=== PATIENT | female | born 1960 | race Caucasian/White ===

== ENCOUNTER 2022-12-14 10:08 | Inpatient (IN) ==
[2022-12-14] MEDS ORDERED: niCARdipine HCL INJ 2.5 MG/ML 10 ML AMP ONE ×2 (10:12→10:13)
[2022-12-14] MEDS ORDERED: MIDAZOLAM HCL 1 MG/ML 2ML VIAL ONE (10:12)
[2022-12-14] MEDS ORDERED: NITROGLYCERIN/D5W 100MCG/ML 20ML SYR ONE (10:12)
[2022-12-14] MEDS ORDERED: HEPARIN (PORCINE) 1000 UNIT/ML 10 ML (CATH LAB USE ONLY) ONE (10:12)
[2022-12-14] MEDS ORDERED: fentaNYL citrate PF 100 MCG/2 ML VIAL ONE ×2 (10:12→10:21)
[2022-12-14] MEDS ORDERED: SODIUM CHLORIDE 0.9% 1000ML 1,000 ML IV ONE (10:15)
[2022-12-14 10:26] LABS: Basophils % (auto) 1.1 %; Eosinophils # (auto) 0.09 K/uL (0-0.50); Hematocrit (blood only) 41.8 % (37.0-47.0); Hemoglobin 13.9 g/dl (12.0-16.0); Immature Granulocytes # (auto) 0.02 K/uL (0.01-0.20); Immature Granulocytes % (auto) 0.2 %; Lymphocytes # (auto) 3.72 K/uL (1.2-3.4); Lymphocytes % (auto) 42.1 %; Mean Corpuscular Hemoglobin 30.4 pg (25.0-34.0); Mean Corpuscular Hgb Conc 33.3 g/dL (32.0-36.0); Mean Corpuscular Volume 91.5 fL (80.0-100.0); Mean Platelet Volume 9.2 fL (9.4-12.4); Monocytes # (auto) 0.69 K/uL (0.11-0.59); Monocytes % (auto) 7.8 %; Neutrophils # (auto) 4.22 K/uL (1.40-6.50); Neutrophils % (auto) 47.8 %; Platelet Count 318 K/uL (130-400); RDW Coefficient of Variation 13.3 % (11.5-14.5); RDW Standard Deviation 45.5 fL (36.4-46.3); Red Blood Count 4.57 M/uL (4.20-5.40); White Blood Count 8.84 K/ul (4.8-10.8)
--- NOTE | 2022-12-14 10:28 | Emergency Department Note ---
"Impression & Plan Acute ST elevation myocardial infarction (STEMI) of inferior wall ED Provider Note Name: JOHNIE CORREA Age: 62 Sex: F Arrives Via: Ambulance Informant: Patient, EMS, family ED Provider: Josue Nelson MD Chief Complaint: Chest pain Impression: As Per impressions above Medical Decision Makin-year-old female with sudden onset left-sided chest pain radiating to left shoulder left neck and back this morning. Rapidly worsening and called 911. On arrival EMS noted patient to be having an inferior ST elevation NC with complete heart block, hypertension. She was given IV fluids, p.o. aspirin, IV epi and IV fentanyl prior to arrival with improvement in symptoms. Patient on arrival is unwell appearing with a large STEMI. In the setting of hypotension and the pain rating to her back emergent chest x-ray was obtained which does not show any widened mediastinum. She has good pulses all 4 extremities. Discussed with cath team and irrigation equipment mechanic who feel that this is more likely cardiac and to be taken emergently to [facility] rather than getting CT angio chest to rule out dissection. She was given some further IV fentanyl while here along with a liter of fluid his blood pressures are a bit soft. She is breathing comfortably and sats are remaining stable. Patient taken emergently to [facility] for further management. Prior Medical Record and Triage/Nursing Notes reviewed by Me External chart reviewed by me Differentials:ACS, pneumothorax, dissection, PE, pneumonia, musculoskeletal, intra-abdominal amongst other pathologies considered Vital Signs: reviewed and remarkable for mild hypotension Interventions: Normal saline bolus 1 L IV, fentanyl 50 mcg IV Labs:Reviewed and remarkable for no significant abnormalities on initial laboratory testing Imagin view chest x-ray as per my interpretation there is no widened m ediastinum, pneumothorax, infiltrate or other concerning finding at this time other than some mild congestion bilateral lower lungs EKG:As per my interpretation. Chest pain. ST elevation NC with complete heart block 49 bpm as she is in a junctional rhythm there are anterior ST depressions. QTc 442 when compared to EKG of December 15, 2018 findings are new. Cardiac/Tele Monitoring: Cardiac Monitoring: An Order was placed for continuous cardiac monitoring. The monitor shows a rate of 50 with a bradycardic rhythm. Consults:Dr Sharp Lead Inspector Plan: Disposition:Taken emergently to director of labor and delivery Condition: Critical History of Present Illness:63-year-old female arrives for evaluation of sudden onset chest pain. Patient notes this morning she was getting ready for garage sale when she developed sudden onset left-sided chest pain rating to her left shoulder and left neck. Pain is now primarily in her left back. It is sharp and stabbing in nature. Associated with some mild shortness of breath. She feels very weak and tired. Denies previous cardiac issues. Denies any falls, trauma, injuries. She is a smoker and has a history of COPD. States she was feeling fine up until this morning. Denies any abdominal pain, leg pain, arm pain, neurologic deficits or other concerning signs or symptoms. Arrives via EMS received aspirin 324 mg p.o., epinephrine 0.5 mg IV and fentanyl 50 mcg IV prior to arrival. Patient was noted to have an inferior STEMI as well as complete heart block when EMS called in for medical command. Past History:Asthma, anxiety, COPD Home Medications:See Below Allergies:Sulfa, gabapentin Vitals:Blood Pressure: 107/60, Pulse 50, RR 12, T 36.6C, O2 98% on RA Physical Exam: GENERAL: Patient is ill appearing and in moderate distress. EYES: No scleral icterus, unremarkable pupils. ENT: Mucous membranes moist, no nasal congestion. RESPIRATORY: No dyspnea. Clear to auscultation and equal bilaterally. No wheeze, no rhonchi. CARDIOVASCULAR: Bradycardic.No murmurs, rubs, gallops appreciated. GASTROINTESTINAL: Abdomen soft, non-tender, no peritonitis. BACK: No midline tenderness, no CVA tenderness EXTREMITIES: Normal motion all extremities, no cyanosis, no edema. NEUROLOGIC: Alert and oriented though mildly somnolent, no focal neurologic deficit. No movement of right eye. SKIN: No rash, no jaundice, no diaphoresis. PSYCH: Appropriate GCS: 15 ED Course: Times/Reassessments: I met patient at bedside with EMS on her arrival. Patient managed exclusively until cath team arrived and after discussion took her to the [facility]. Patient with stable vitals and feeling improved at time of transfer to [facility]. Critical Care: I have personally spent 35 minutes of critical care time in the direct managem ent of this patient. Acute Inferior Stemi transferred to director of labor and delivery. This was a life/limb threatening event. This 35 minutes is in excess of all separately billable procedures. Josue Nelson MD Past Med/Surg History Medical History (Updated 12/14/22 @ 13:44 by Josue Nelson MD) Anxiety Asthma Epigastric pain Urticaria Surgical History No pertinent past surgical history Family History Other Factor V Leiden Social History Smoking Status: Current every day smoker Tobacco Type: Cigarettes Tobacco Cessation Education Requested by Patient: No Hx Substance Use: No Preferred Language: Djiboutian Communication Ability: Effective Surgical Corsetier Required: No Beliefs That Will Affect Care: None marital status: Single Current Living Situation: Alone current occupational status: employed Feels Safe at Home: Yes Safety Concerns: Feels Safe At This Time Allergies Allergies Allergy/AdvReac Type Severity Reaction Status Date / Time Sulfa (Sulfonamide Allergy Mild BURN Unverified 04/18/20 23:17 Antibiotics) gabapentin Allergy Unknown RASH/HIVES Unverified 04/18/20 23:17 garlic Allergy Unknown GI ISSUES Unverified 04/18/20 23:17 Home Meds Home Medications Medication Instructions Recorded Confirmed albuterol sulfate 90 mcg/actuation 2 puff inhalation BID PRN 12/15/18 12/14/22 aerosol inhaler (ProAir HFA) wheezing/sob aspirin 81 mg tablet,delayed 81 mg PO DAILY 12/15/18 12/14/22 release hydrocodone 10 mg-acetaminophen 1 tab PO Q6H PRN Pain 12/15/18 12/14/22 325 mg tablet (Glendo) lorazepam 0.5 mg tablet (Ativan) 0.5 mg PO Q6 PRN Anxiety 12/15/18 12/14/22 tobramycin 0.3 % eye drops 1 drp ophthalmic (eye) DAILY PRN 12/15/18 12/14/22 eye infection bupropion HCl 150 mg tablet,12 hr 300 mg PO DAILY 04/18/20 12/14/22 sustained-release cyclobenzaprine 10 mg tablet 10 mg PO HS PRN Muscle Spasm 12/14/22 12/14/22 diclofenac sodium 75 mg 75 mg PO BID 05/07/23 05/07/23 tablet,delayed release Results & Data (ED) Vital Signs Vital Signs - 24 hr 12/14/22 10:13 12/14/22 10:17 12/14/22 10:16 Temperature 36.5 C Temperature Source Oral Pulse Rate 50 L 51 L 50 L Pulse Rate from SpO2 Sensor 50 L Pulse Rhythm Regular Pulse Strength Normal Respiratory Rate 18 20 Respiratory Effort / Characteristics Non-Labored Respiratory Depth Normal Respiratory Pattern Regular Blood Pressure 140/113 H 140/113 H Blood Pressure Mean 122 122 Pulse Oximetry 100 100 Oxygen Delivery Method Nasal Cannula Nasal Cannula Oxygen Flow Rate 2 Sepsis Recent Fever Within 48 Hours No Sepsis New/Unexplained Change in Mental Status No Sepsis Action Taken by Nursing No Action Required 12/14/22 10:20 12/14/22 10:26 Temperature Temperature Source Pulse Rate 54 L 54 L Pulse Rate from SpO2 Sensor 54 L 54 L Pulse Rhythm Pulse Strength Respiratory Rate 17 18 Respiratory Effort / Characteristics Respiratory Depth Respiratory Pattern Blood Pressure 108/70 117/70 Blood Pressure Mean 82 85 Pulse Oximetry 99 100 Oxygen Delivery Method Nasal Cannula Nasal Cannula Oxygen Flow Rate 2 2 Sepsis Recent Fever Within 48 Hours Sepsis New/Unexplained Change in Mental Status Sepsis Action Taken by Nursing Laboratory Data 12/14/22 10:16 12/14/22 10:16 Lab Results 12/14/22 12/14/22 12/14/22 Range/Units 10:16 10:16 10:16 WBC 8.84 (4.8-10.8) K/ul RBC 4.57 (4.20-5.40) M/uL Hgb 13.9 (12.0-16.0) g/dl POC Hgb (12.0-16.0) g/dl Hct 41.8 (37.0-47.0) % POC Hct (37-47) % MCV 91.5 (80.0-100.0) fL MCH 30.4 (25.0-34.0) pg MCHC 33.3 (32.0-36.0) g/dL RDW Std Deviation 45.5 (36.4-46.3) fL RDW Coeff of Neeta 13.3 (11.5-14.5) % Plt Count 318 (130-400) K/uL MPV 9.2 L (9.4-12.4) fL Immature Gran % (Auto) 0.2 % Neut % (Auto) 47.8 % Lymph % (Auto) 42.1 % Screven % (Auto) 7.8 % Eos % (Auto) 1.0 % Baso % (Auto) 1.1 % Neut # (Auto) 4.22 (1.40-6.50) K/uL Lymph # (Auto) 3.72 H (1.2-3.4) K/uL Screven # (Auto) 0.69 H (0.11-0.59) K/uL Eos # (Auto) 0.09 (0-0.50) K/uL Baso # (Auto) 0.10 (0-0.2) K/uL Immature Gran # (Auto) 0.02 (0.01-0.20) K/uL PT 10.9 (9.0-12.0) Seconds INR 1.0 (0.9-1.1) APTT 23.4 (21.0-31.0) Seconds PTT Ratio 0.8 Activ Coag Time Kaolin (94-140) SECONDS POC Sodium (135-144) mmol/L Sodium 136 (136-145) mmol/L POC Potassium (3.3-5.0) mmol/L Potassium 4.3 (3.5-5.1) mmol/L POC Chloride (101-112) mmol/L Chloride 105 (98-107) mmol/L Carbon Dioxide 24 (21-32) mmol/L POC Total CO2 (24-31) mmol/L Anion Gap 7 (3-11) POC Anion Gap (16-25) mmol/L POC BUN (7-18) mg/dl BUN 25 H (6-23) mg/dl Creatinine 0.99 (0.6-1.2) mg/dl POC Creatinine (0.6-1.3) mg/dl Est Cr Clr Drug Dosing 66.4 ml/min Est GFR ( Amer) 70.8 ml/min Est GFR (Non-Af Amer) 61.1 ml/min BUN/Creatinine Ratio 25.3 H (10-20) Glucose 150 H (70-99(Fasting)) mg/dl POC Glucose (other) (70-99) mg/dl Calcium 8.4 L (8.6-10.3) mg/dl POC Ioniz Calcium Aggie (1.12-1.32) mmol/l Magnesium 1.9 (1.7-2.4) mg/dl Total Bilirubin 0.4 (0.2-1.0) mg/dl Direct Bilirubin 0.0 (0-0.2) mg/dl AST 12 L (13-39) U/L ALT 14 (7-52) U/L Alkaline Phosphatase 71 (34-104) U/L Troponin I High Sens 7.5 (0-14) pg/ml Total Protein 5.6 L (6.0-8.3) gm/dl Albumin 3.6 (3.4-5.0) gm/dl LDL Cholesterol Direct 178 mg/dl 12/14/22 12/14/22 12/14/22 Range/Units 10:19 11:04 11:29 WBC (4.8-10.8) K/ul RBC (4.20-5.40) M/uL Hgb (12.0-16.0) g/dl POC Hgb 15.0 (12.0-16.0) g/dl Hct (37.0-47.0) % POC Hct 44 (37-47) % MCV (80.0-100.0) fL MCH (25.0-34.0) pg MCHC (32.0-36.0) g/dL RDW Std Deviation (36.4-46.3) fL RDW Coeff of Neeta (11.5-14.5) % Plt Count (130-400) K/uL MPV (9.4-12.4) fL Immature Gran % (Auto) % Neut % (Auto) % Lymph % (Auto) % Screven % (Auto) % Eos % (Auto) % Baso % (Auto) % Neut # (Auto) (1.40-6.50) K/uL Lymph # (Auto) (1.2-3.4) K/uL Screven # (Auto) (0.11-0.59) K/uL Eos # (Auto) (0-0.50) K/uL Baso # (Auto) (0-0.2) K/uL Immature Gran # (Auto) (0.01-0.20) K/uL PT (9.0-12.0) Seconds INR (0.9-1.1) APTT (21.0-31.0) Seconds PTT Ratio Activ Coag Time Kaolin 269 H 323 H (94-140) SECONDS POC Sodium 137 (135-144) mmol/L Sodium (136-145) mmol/L POC Potassium 4.3 (3.3-5.0) mmol/L Potassium (3.5-5.1) mmol/L POC Chloride 105 (101-112) mmol/L Chloride (98-107) mmol/L Carbon Dioxide (21-32) mmol/L POC Total CO2 21 L (24-31) mmol/L Anion Gap (3-11) POC Anion Gap 17.0 (16-25) mmol/L POC BUN 23 H (7-18) mg/dl BUN (6-23) mg/dl Creatinine (0.6-1.2) mg/dl POC Creatinine 0.9 (0.6-1.3) mg/dl Est Cr Clr Drug Dosing ml/min Est GFR ( Amer) ml/min Est GFR (Non-Af Amer) ml/min BUN/Creatinine Ratio (10-20) Glucose (70-99(Fasting)) mg/dl POC Glucose (other) 147 H (70-99) mg/dl Calcium (8.6-10.3) mg/dl POC Ioniz Calcium Aggie 1.05 L (1.12-1.32) mmol/l Magnesium (1.7-2.4) mg/dl Total Bilirubin (0.2-1.0) mg/dl Direct Bilirubin (0-0.2) mg/dl AST (13-39) U/L ALT (7-52) U/L Alkaline Phosphatase (34-104) U/L Troponin I High Sens (0-14) pg/ml Total Protein (6.0-8.3) gm/dl Albumin (3.4-5.0) gm/dl LDL Cholesterol Direct mg/dl 12/14/22 Range/Units 12:18 WBC 12.51 H (4.8-10.8) K/ul RBC 4.60 (4.20-5.40) M/uL Hgb 14.1 (12.0-16.0) g/dl POC Hgb (12.0-16.0) g/dl Hct 44.0 (37.0-47.0) % POC Hct (37-47) % MCV 95.7 (80.0-100.0) fL MCH 30.7 (25.0-34.0) pg MCHC 32.0 (32.0-36.0) g/dL RDW Std Deviation 47.7 H (36.4-46.3) fL RDW Coeff of Neeta 13.4 (11.5-14.5) % Plt Count 303 (130-400) K/uL MPV 9.3 L (9.4-12.4) fL Immature Gran % (Auto) 0.4 % Neut % (Auto) 81.0 % Lymph % (Auto) 13.5 % Screven % (Auto) 4.2 % Eos % (Auto) 0.3 % Baso % (Auto) 0.6 % Neut # (Auto) 10.13 H (1.40-6.50) K/uL Lymph # (Auto) 1.69 (1.2-3.4) K/uL Screven # (Auto) 0.52 (0.11-0.59) K/uL Eos # (Auto) 0.04 (0-0.50) K/uL Baso # (Auto) 0.08 (0-0.2) K/uL Immature Gran # (Auto) 0.05 (0.01-0.20) K/uL PT (9.0-12.0) Seconds INR (0.9-1.1) APTT (21.0-31.0) Seconds PTT Ratio Activ Coag Time Kaolin (94-140) SECONDS POC Sodium (135-144) mmol/L Sodium (136-145) mmol/L POC Potassium (3.3-5.0) mmol/L Potassium (3.5-5.1) mmol/L POC Chloride (101-112) mmol/L Chloride (98-107) mmol/L Carbon Dioxide (21-32) mmol/L POC Total CO2 (24-31) mmol/L Anion Gap (3-11) POC Anion Gap (16-25) mmol/L POC BUN (7-18) mg/dl BUN (6-23) mg/dl Creatinine (0.6-1.2) mg/dl POC Creatinine (0.6-1.3) mg/dl Est Cr Clr Drug Dosing ml/min Est GFR ( Amer) ml/min Est GFR (Non-Af Amer) ml/min BUN/Creatinine Ratio (10-20) Glucose (70-99(Fasting)) mg/dl POC Glucose (other) (70-99) mg/dl Calcium (8.6-10.3) mg/dl POC Ioniz Calcium Aggie (1.12-1.32) mmol/l Magnesium (1.7-2.4) mg/dl Total Bilirubin (0.2-1.0) mg/dl Direct Bilirubin (0-0.2) mg/dl AST (13-39) U/L ALT (7-52) U/L Alkaline Phosphatase (34-104) U/L Troponin I High Sens (0-14) pg/ml Total Protein (6.0-8.3) gm/dl Albumin (3.4-5.0) gm/dl LDL Cholesterol Direct mg/dl Administered Medications Discontinued Medications Eptifibatide (Eptifibatide 2 Mg/Ml 10 Ml Vial ([facility] Use Only)) Confirm Administered Dose 20 mg IV .STK-MED ONE Stop: 12/14/22 11:04 Last Admin: 12/14/22 11:25 Dose: 16 ml Documented By: RITIKA Eptifibatide (Eptifibatide 0.75 Mg/Ml 75mg Vial ([facility] Use Only)) Confirm Administered Dose 75 mg IV .STK-MED ONE Stop: 12/14/22 11:05 Last Admin: 12/14/22 11:25 Dose: 75 mg Documented By: RITIKA Fentanyl Citrate (Fentanyl Citrate Pf 100 Mcg/2 Ml Vial) Confirm Administered D ose 100 mcg .ROUTE .STK-MED ONE Stop: 12/14/22 10:13 Last Increment: 12/14/22 11:23 Dose: 25 mcg Documented By: RITIKA Fentanyl Citrate (Fentanyl Citrate Pf 100 Mcg/2 Ml Vial) Confirm Administered Dose 100 mcg .ROUTE .STK-MED ONE Stop: 12/14/22 10:22 Last Admin: 12/14/22 10:42 Dose: Not Given Documented By: LUISA Fentanyl Citrate (Fentanyl Citrate Pf 100 Mcg/2 Ml Vial) 50 mcg IV NOW STA Stop: 12/14/22 10:40 Last Admin: 12/14/22 10:21 Dose: 50 mcg Documented By: LUISA Heparin Sodium (Porcine) (Heparin (Porcine) 1000 Unit/Ml 10 Ml ([facility] Use Only)) Confirm Administered Dose 10,000 units .ROUTE .STK-MED ONE Stop: 12/14/22 10:13 Last Admin: 12/14/22 11:23 Dose: 6,500 units Documented By: TLF Heparin Sodium/Sodium Chloride (Heparin In Nss Infusion 1000 Unit/500 Ml (2 U/Ml) Bag) Confirm Administered Dose 3,000 units IV .STK-MED ONE Stop: 12/14/22 10:13 Last Admin: 12/14/22 11:23 Dose: 3,000 units Documented By: TLF Sodium Chloride (Nss 1000ml) 1,000 mls @ 999 mls/hr IV .Q1H1M ONE Stop: 12/14/22 11:15 Last Admin: 12/14/22 10:14 Dose: 999 mls/hr Documented By: W[place] Midazolam HCl (Midazolam Hcl 1 Mg/Ml 2ml Vial) Confirm Administered Dose 2 mg .ROUTE .STK-MED ONE Stop: 12/14/22 10:13 Last Admin: 12/14/22 11:23 Dose: Not Given Documented By: TLF Nicardipine HCl (Nicardipine Hcl Inj 2.5 Mg/Ml 10 Ml Amp) Confirm Administered Dose 25 mg .ROUTE .STK-MED ONE Stop: 12/14/22 10:13 Last Admin: 12/14/22 11:23 Dose: 25 mg Documented By: TLF Nicardipine HCl (Nicardipine Hcl Inj 2.5 Mg/Ml 10 Ml Amp) Confirm Administered Dose 25 mg .ROUTE .STK-MED ONE Stop: 12/14/22 10:14 Last Admin: 12/14/22 11:24 Dose: 25 mg Documented By: TLF Nitroglycerin/Dextrose (Nitroglycerin/D5w 100mcg/Ml 20ml Syr) Confirm Administered Dose 2,000 mcg .ROUTE .STK-MED ONE Stop: 12/14/22 10:13 Last Admin: 12/14/22 11:23 Dose: 2,000 mcg Documented By: TLF Norepinephrine Bitartrate (Norepinephrine Bitartrate 1 Mg/Ml 4 Ml Vial ([facility] Use Only)) Confirm Administered Dose 4 mg IV .STK-MED ONE Stop: 12/14/22 10:51 Last Admin: 12/14/22 11:25 Dose: Not Given Documented By: TLF Ondansetron HCl (Ondansetron Inj 2 Mg/Ml 2 Ml Vial) Confirm Administered Dose 4 mg .ROUTE .STK-MED ONE Stop: 12/14/22 10:37 Last Admin: 12/14/22 11:24 Dose: 4 mg Documented By: TLF Ondansetron HCl (Ondansetron Inj 2 Mg/Ml 2 Ml Vial) Confirm Administered Dose 4 mg .ROUTE .STMikro Odeme | 3pay-MED ONE Stop: 12/14/22 10:46 Last Admin: 12/14/22 11:25 Dose: 4 mg Documented By: TLF Imaging Data Radiologist's Impression: Chest X-Ray 12/14/22 10:15 XR chest 1V portable CLINICAL HISTORY: Atypical chest pain. COMPARISON STUDY: Chest radiograph December 15, 2018. FINDINGS: Lung volumes are normal. Lungs are clear. There is no pneumothorax or pleural effusion. Cardiac size is normal. Mediastinal contours are normal. There is no evidence for pulmonary edema. IMPRESSION: No acute cardiopulmonary findings. ACT 112: Negative or not required by law. Electronically signed by: Gary Ureña M.D. 12/14/2022 10:30 AM Discharge Plan Visit Data Chief Complaint: Heart Alert Stated Complaint: HEART ALERT ED Provider: Josue Nelson Discharge Problem: Acute ST elevation myocardial infarction (STEMI) of inferior wall"
[2022-12-14 10:31] LABS: iSTAT Creatinine 0.9 mg/dl (0.6-1.3); iSTAT Ionized Calcium 1.05 mmol/l (1.12-1.32); iSTAT Potassium 4.3 mmol/L (3.3-5.0)
--- NOTE | 2022-12-14 10:32 | XRay Report ---
XR chest 1V portable CLINICAL HISTORY: Atypical chest pain. COMPARISON STUDY: Chest radiograph December 15, 2018. FINDINGS: Lung volumes are normal. Lungs are clear. There is no pneumothorax or pleural effusion. Car diac size is normal. Mediastinal contours are normal. There is no evidence for pulmonary edema. IMPRESSION: No acute cardiopulmonary findings. ACT 112: Negative or not required by law. Electronically signed by: Gary Ureña M.D. 12/14/2022 10:30 AM
[2022-12-14] MEDS ORDERED: ONDANSETRON INJ 2 MG/ML 2 ML VIAL ONE ×2 (10:36→10:45)
[2022-12-14 10:37] LABS: Partial Thromboplastin Ratio 0.8; Partial Thromboplastin Time 23.4 Seconds (21.0-31.0); Prothrombin Time 10.9 Seconds (9.0-12.0)
[2022-12-14] MEDS ORDERED: fentaNYL citrate PF 100 MCG/2 ML VIAL IV STA (10:39)
[2022-12-14] MEDS ORDERED: DOPamine 400MG / 250ML D5W (Cath Lab Use ONLY) IV ONE (10:39)
[2022-12-14 10:48] LABS: Albumin Level 3.6 gm/dl (3.4-5.0); BUN Creatinine Ratio 25.3 (10-20); Bilirubin,Total 0.4 mg/dl (0.2-1.0); Calcium 8.4 mg/dl (8.6-10.3); Creatinine Clr Calc Pharmacy 66.4 ml/min; Est GFR (African American) 70.8 ml/min; Est GFR (Non-African American) 61.1 ml/min; Magnesium 1.9 mg/dl (1.7-2.4); Potassium 4.3 mmol/L (3.5-5.1); Total Protein 5.6 gm/dl (6.0-8.3)
[2022-12-14] MEDS ORDERED: NOREPINEPHRINE BITARTRATE 1 MG/ML 4 ML VIAL (CATH LAB USE ONLY) IV ONE (10:50)
[2022-12-14 10:54] LABS: Troponin I High Sensitivity 7.5 pg/ml (0-14)
[2022-12-14] MEDS ORDERED: EPTIFIBATIDE 2 MG/ML 10 ML VIAL (CATH LAB USE ONLY) IV ONE (11:03)
[2022-12-14] MEDS ORDERED: EPTIFIBATIDE 0.75 MG/ML 75MG VIAL (CATH LAB USE ONLY) IV ONE (11:04)
[2022-12-14] MEDS ORDERED: TICAGRELOR 90 MG TAB ONE (11:29)
[2022-12-14] MEDS ORDERED: ONDANSETRON INJ 2 MG/ML 2 ML VIAL IV PRN (11:34)
[2022-12-14] MEDS ORDERED: STAT IV Infusion **Titration per Protocol STA (11:34)
[2022-12-14] MEDS ORDERED: ATROPINE SULFATE 0.1 MG/ML 10ML SYR IV PRN (11:34)
[2022-12-14] MEDS ORDERED: EPTIFIBATIDE BOLUS/DRIP IV STA (11:34)
--- NOTE | 2022-12-14 11:45 | Pre Anesthesia Assessment ---
Date of Service December 14, 2022 Pre Sedation Assessment Vital Signs Temp Pulse Resp BP Pulse Ox O2 Del Method O2 Flow Rate 12/14/22 10:26 54 L 18 117/70 100 Nasal Cannula 2 12/14/22 10:20 54 L 17 108/70 99 Nasal Cannula 2 12/14/22 10:16 50 L 20 140/113 H 100 Nasal Cannula 2 12/14/22 10:17 51 L 12/14/22 10:13 36.5 C 50 L 18 140/113 H 100 Nasal Cannula Cardiovascular RRR, no murmur, no edema (bradycardia) Respiratory normal respiratory effort, lungs clear to auscultation Pre-Sedation Airway Assessment Smoking Status: Current every day smoker mallampati III ASA 4 Notes The planned sedation has been discussed with the patient. Informed Consent was obtained. I have identified the patient, determined the appropriateness of sedation and have assessed the patient immediately prior to the procedure. All medicine(s) and interventions are by my order. [facility] [place] (Charges) Indication for Procedure Indication for procedure: STEMI bradycardia
--- NOTE | 2022-12-14 11:48 | Post Anesthesia Assessment ---
Date of Service December 14, 2022 Post Sedation Assessment Vital Signs Temp Pulse Resp BP Pulse Ox O2 Del Method O2 Flow Rate 12/14/22 10:26 54 L 18 117/70 100 Nasal Cannula 2 12/14/22 10:20 54 L 17 108/70 99 Nasal Cannula 2 12/14/22 10:16 50 L 20 140/113 H 100 Nasal Cannula 2 12/14/22 10:17 51 L 12/14/22 10:13 36.5 C 50 L 18 140/113 H 100 Nasal Cannula Recovery Score Activity: Moves 4 extremities Respiration: Deep Breath/Cough Circulation: +/-20% PreAnes Value Consciousness: Fully Awake Oxygen Saturation: > 92% On Room Air Discharge Sedation Level of Care: Fast Track Phase II Post Sedation Plan On clinical assessment, the patient appears to have tolerated the sedation without complications. Patient is recovering as anticipated. Patient will continue to be monitored by nursing and may be discharged when sedation discharge criteria are met per below protocol. Upon Completions of procedure up to 15 minutes continue every 5 minute vital signs and the P.A.R. score; then discharge to a Phase I or Fast Track to Phase II per the following guidelines: * Discharge Patient to appropriate Phase II area if PAR is 8 or greater or return to pre- procedure baseline. The post - procedure orders will be as directed. * If PAR score is less than 8 or not return to pre-procedure baseline then patient will follow Phase I monitoring till PAR is reached for Phase II. The Phase I may be done in procedure room or may call to secure a Phase I area. * If naloxone or flumazenil are used for reversal, hold in Phase I for continued monitoring from when last reversal dose was given for a minimum of 60 minutes or longer pending the nurse and/or physician discretion of patient condition before discharge to Phase II. Please call the Sedation Physician to re-evaluate and complete post-note for discharge to Phase II area. Do NOT discharge from procedure sedation or Phase 1 until post- sedation evaluation note is complete by procedure /sedation MD Sedation Discharge Instructions to be given to the patient at discharge to home. [facility] [place] Procedure Codes (Charges) Indication for Procedure Indication for procedure: STEMI bradycardia Sedation/Anesthesia Procedure 1: Sedation/Anesthesia: 05450 Mod Sedation by the same physician;Init15 Min Child Age 5 & Up (initial 15 min) Total Sedation Time (minutes): 44 Procedure 2: Sedation/Anesthesia: 42191 Mod Sedation by the same physician; Ea [id number] Minutes Total Sedation Time (minutes): 44
--- NOTE | 2022-12-14 12:03 | Cardiac Catheterization ---
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 Cardiac Status Clinical evaluation leading to the procedure CAD Presenation: STEMI (inferior) Anginal Classification: CCS IV Heart Failure: No Cardiogenic Shock within 24 Hours: Yes (borderline) Cardiac Arrest within 24 Hours: No Imaging Studies Past 6 Months: No Stress Studies Past 6 Months: No STEMI OR Non-STEMI Symptom Onset Date: 12/14/22 Symptom Onset Time: 09:00 Thrombolytics: No Coronary Anatomy Dominant: Right Left Main (% Stenosis): Normal LAD (% Stenosis): Ostial (30%) D1 (% Stenosis): Normal Circumflex (% Stenosis): Normal OM1 (% Stenosis): Normal OM2 (% Stenosis): Normal RCA (% Stenosis): Proximal (100%) Diagnostic Physicians Name: Dillon Sharp MD, PhD Closure Device Percutaneous Entry Location: Femoral Closure Device: Angio-Seal Recommendations: Medical Therapy and/or Counseling and PCI without planned CABG PCI Indication: PCI for STEMI - Unstable First Noted: First EKG Reason For Delay in PCI:: equipment failure Lesion Segment Name: RCA Culprit Artery: Yes Stenosis Prior to Rx (%): 100 Chronic Total Occlusion: No Pre-Procedure ELEAZAR Flow: 0 Previously Treated Lesion: No Lesion Complexity: Non-High/Non-C Lesion Length (mm): 12 Thrombus Present: Yes Bifurcation Lesion: No Guidewire Across Lesion: Yes Intraprocedure Events Significant Disection: No Perforation: No Cardiac Cath Procedure Full Procedure Date December 14, 2022 Pre-Procedure Diagnosis Pre-Procedure Diagnosis: STEMI and Arrhythmia AUC Score AUC Score: 09 Post-Procedure Diagnosis Post-Procedure Diagnosis: Severe CAD and Successful PCI Procedure(s) Performed Procedure(s) Performed: Coronary Angiography, Drug Eluting Stent and Ultrasound Guided Vascular Access Oil Distributor Dillon Sharp MD, PhD Estimated Blood Loss Estimated Blood Loss: 15 Medication(s) Medication(s): Dopamine, Fentanyl, Heparin, Integrilin, Lidocaine 1%, Nitroglycerin and Versed Summary of Findings Brief description: Patient was brought to the cardiac catheterization suite where she was shaved and prepped in a sterile fashion. Sedated using only fentanyl because of her low blood pressure. Soft tissues of the right groin were anesthetized using 10 mils of 1% Xylocaine. Using the ultrasound for guidance (image saved), the right femoral artery was accessed and a 6 Iranian femoral artery sheath was placed. All catheters were advanced and exchanged over a 0.035 J-tip wire. Left coronary angiography was performed in orthogonal views with a 5 Iranian JL 4 diagnostic catheter. Right coronary angiography was performed in orthogonal views with a 6 Iranian JR4 guide catheter. We next proceeded with PCI. During PCI, patient developed hypotension and worsening bradycardia. She was started on dopamine drip. This improved her blood pressure and her heart rate, however, she became very nauseated and we eventually stopped the dopamine. She was also on IV fluids wide open. She was given Zofran for the nausea and vomiting. Patient was provided 6500 units of IV heparin. The ACT was checked intermittently and additional heparin provided as needed. BMW universal guidewire was advanced through the guide catheter and positioned distally in the RCA. Lesion was predilated with a 2.5 x 12 mm trek balloon at 12 eduardo maximum. PCI with 2.5 x 18 mm drug-eluting stent. Postdilatation of the stent with a 2.5 x 12 mm noncompliant balloon. Guidewire and balloon were removed. Final angiographic evaluation was performed in orthogonal views. Limited right femoral artery angiography was performed to evaluate for closure. Findings were favorable, therefore, the femoral artery sheath was exchanged for a 6 Iranian Angio-Seal closure device. This was deployed in the recommended fashion. We obtained immediate hemostasis and the patient remained asymptomatic. She was then returned to the recovery area. This ended the case. Coronary angiography findings: [id number] bifurcating into LAD and circumflex. No angiographically evident disease. LAD- Large caliber and transapical. Very tortuous in the distal vessels. There is a large branching diagonal with tortuous branches. Proximal LAD up to 30% stenosis. The remainder of the LAD and its branches have no more than mild luminal irregularities. LCx-large caliber and nondominant. Travels in the AV groove giving a small OM1 and then a large branching OM 2. Distally the vessel tapers and then terminates. No angiographically evident disease in the circumflex or its branches. RCA: Large caliber and dominant. 100% occluded proximally. ELEAZAR 0 flow. Thrombus present. PCI of RCA: 0-10% residual stenosis post PCI. There is mild in-stent "cheese grater" type material and mild thrombus. ELEAZAR-3 flow post PCI No evidence of dissection or perforation post PCI The mid to distal RCA are evident post PCI and have mild disease. Vessel bifurcates into a large PDA and a large multi branching posterolateral without disease. Summary: 1. Acute inferior ST elevation IL likely also involving the right ventricle secondary to 100% thrombotic occlusion proximally. Remainder of the coronaries are without significant disease. 2. Successful PCI with implantation of a drug-eluting stent to the RCA. Adequate angiographic outcome. Residual thrombus and plaque will be managed by medication. 3. Dual antiplatelet therapy with aspirin 81 mg daily and Brilinta 90 mg p.o. twice daily 4. Guideline directed medical therapy for secondary prevention of coronary disease to include; high intensity statin therapy, beta-denae, plus or minus PATRICIA inhibitor/ARB as tolerated. Abstinence from tobacco. Hemodynamics Rest Ao:: 106/61 mm Hg Final Ao: 73/53 mm Hg LV: not performed Recommendations Recommendations: Medical Therapy and/or Counseling and PCI without planned CABG Radiation Exposure (mGy) 638 mGy, flourotime 7.4 min Contrast (mls) 120 Anesthesia start 10:44, end 11:28 50 mcg fentanyl Procedural Complication(s) None Disposition ICU I attest to the content of the Intraoperative Record and any orders documented therein. Any exceptions are noted below. Rebit Card Cath Procedure Codes Cardiac Catheterization Procedure 1: Cardiovascular Cath Procedures: 41118 Coronaries Therapeutic Services & Ancillary Procedure 1: Cardiovascular Tx and Anc Procedures: 14994 Ultrasonic Guidance Vascular Access Moderate Sedation Procedure 1: Sedation/Anesthesia: 63133 Mod Sedation by the same physician;Init15 Min Child Age 5 & Up (initial 15 min (total 44 min)) Procedure 2: Sedation/Anesthesia: 61185 Mod Sedation by the same physician; Ea [id number] Minutes (addition 29 min (total 44 min)) Stenting Procedure 1: Cardiovascular Stent Procedures: 78272 Perc transluminal revascularization of acute sub/total occl, aMI PG Care Time/CCT Total # of Minutes Spent Total Time Spent with Patient: Total time spent is greater than 50% in coordination of care (as documented) at patient's floor/unit and/or counseling patient:
[2022-12-14 12:55] LABS: Basophils # (auto) 0.08 K/uL (0-0.2); Basophils % (auto) 0.6 %; Eosinophils # (auto) 0.04 K/uL (0-0.50); Eosinophils % (auto) 0.3 %; Hemoglobin 14.1 g/dl (12.0-16.0); Immature Granulocytes # (auto) 0.05 K/uL (0.01-0.20); Immature Granulocytes % (auto) 0.4 %; Lymphocytes # (auto) 1.69 K/uL (1.2-3.4); Lymphocytes % (auto) 13.5 %; Mean Corpuscular Hemoglobin 30.7 pg (25.0-34.0); Mean Corpuscular Volume 95.7 fL (80.0-100.0); Mean Platelet Volume 9.3 fL (9.4-12.4); Monocytes # (auto) 0.52 K/uL (0.11-0.59); Monocytes % (auto) 4.2 %; Neutrophils # (auto) 10.13 K/uL (1.40-6.50); Platelet Count 303 K/uL (130-400); RDW Coefficient of Variation 13.4 % (11.5-14.5); RDW Standard Deviation 47.7 fL (36.4-46.3); White Blood Count 12.51 K/ul (4.8-10.8)
[2022-12-14] MEDS: NICOTINE 14 MG/24 HR PATCH TD SCH (13:00)
--- NOTE | 2022-12-14 14:01 | Cardiology Consultation ---
Date of Consultation December 14, 2022 Assessment & Plan (1) Acute ST elevation myocardial infarction (STEMI) of inferior wall: (2) Tobacco dependence due to cigarettes: (3) Heart block: (4) Familial hyperlipidemia: Plan Patient is a 62-year-old female without prior history of ischemic heart disease, possible transient atrial flutter in the past, chronic tobacco use and marked hyperlipidemia who this morning approximately 9 AM developed symptoms of burning heavy pain in both upper arms radiating to the shoulders and neck symptoms persisted and worsened. Patient notable hypotension on blood pressure check at home and EMS summoned EKG on initial evaluation revealed ST elevation inferior leads with heart block, junctional escape Patient taken emergently to the Health Service Worker and underwent coronary invention for occluded right coronary artery in its proximal segment. Symptoms resolved as did AV block Patient seen immediately post catheterization with resolve of symptoms of chest pain or discomfort Impression: 1. Acute inferior ST elevation myocardial infarction predominantly single- vessel disease with prompt presentation and treatment. Chest pain symptoms resolved Patient on antiplatelet therapy aspirin beta-denae and statin ordered Cardiac rehab consultation on discharge 2. Transient high degree AV block secondary to acute myocardial ischemia resolved on telemetry, serial EKGs to be ordered 3. Marked hyperlipidemia possible familial LDL greater than 200 on initial assessment 2020. High intensity statin to be ordered. May warrant familial screening History of Present Illness Reason for Consultation: ST elevation myocardial infarction Requesting Physician: Dr. Powell Attending Physician: Kenny Powell MD History of Present Illness Patient is a 62-year-old female Allergies Allergy/AdvReac Type Severity Reaction Status Date / Time Sulfa (Sulfonamide Allergy Mild BURN Unverified 04/18/20 23:17 Antibiotics) gabapentin Allergy Unknown RASH/HIVES Unverified 04/18/20 23:17 garlic Allergy Unknown GI ISSUES Unverified 04/18/20 23:17 Home Medications Medication Instructions Recorded Confirmed Type albuterol sulfate 90 mcg/actuation 2 puff inhalation BID PRN 12/15/18 12/14/22 History aerosol inhaler (ProAir HFA) wheezing/sob aspirin 81 mg tablet,delayed 81 mg PO DAILY 12/15/18 12/14/22 History release hydrocodone 10 mg-acetaminophen 1 tab PO Q6H PRN Pain 12/15/18 12/14/22 History 325 mg tablet (Newborn) lorazepam 0.5 mg tablet (Ativan) 0.5 mg PO Q6 PRN Anxiety 12/15/18 12/14/22 History tobramycin 0.3 % eye drops 1 drp ophthalmic (eye) DAILY PRN 12/15/18 12/14/22 History eye infection bupropion HCl 150 mg tablet,12 hr 300 mg PO DAILY 04/18/20 12/14/22 History sustained-release cyclobenzaprine 10 mg tablet 10 mg PO HS PRN Muscle Spasm 12/14/22 12/14/22 History diclofenac sodium 75 mg 75 mg PO BID 12/14/22 12/14/22 History tablet,delayed release Patient History Medical History (Updated 12/14/22 @ 14:15 by Bay Boswell MD) Anxiety Asthma Epigastric pain Urticaria Surgical History No pertinent past surgical history Family History Other Factor V Leiden Social History Smoking Status: Current every day smoker Tobacco Type: Cigarettes Tobacco Cessation Education Requested by Patient: No Hx Substance Use: No Preferred Language: Kiswahili Communication Ability: Effective Magnetic Locater Required: No Beliefs That Will Affect Care: None marital status: Single Current Living Situation: Alone current occupational status: employed Feels Safe at Home: Yes Safety Concerns: Feels Safe At This Time Review of Systems Review of Systems: All systems reviewed & are unremarkable except as noted in HPI & below Physical Exam Constitutional: + ill appearing; no acute distress Eyes: PERRL, conjunctivae normal, anicteric sclerae ENMT: external ear and nose normal, oropharynx normal Neck: trachea midline, no thyromegaly Respiratory: normal respiratory effort, lungs clear to auscultation Auscultation: + diminished lung sounds Cardiovascular: RRR, no murmur, no edema Vessels: femoral pulses present (Right femoral access site intact); no JVD Extremities: no edema Gastrointestinal (Abdomen): normal bowel sounds, soft, nontender, no hepatosplenomegaly Musculoskeletal: no cyanosis or clubbing, extremities motor strength 5/5 Results & Data Vital Signs (Past 12 Hours) Vital Signs Temp Pulse Pulse Resp BP BP Pulse Ox 12/14/22 13:30 71 21 97 12/14/22 13:30 101/71 12/14/22 13:15 73 21 93 12/14/22 13:00 78 19 12/14/22 12:45 80 16 96 12/14/22 12:30 81 15 95 12/14/22 12:30 91/57 L 12/14/22 12:15 81 17 97 12/14/22 12:01 86 21 93 12/14/22 12:01 92/56 L 12/14/22 12:00 87 21 12/14/22 11:51 89 13 12/14/22 11:50 93/53 L 12/14/22 13:22 36.6 C 87 22 93/53 L 98 12/14/22 10:26 54 L 18 117/70 100 12/14/22 10:20 54 L 17 108/70 99 12/14/22 10:16 50 L 20 140/113 H 100 12/14/22 10:17 51 L 12/14/22 10:13 36.5 C 50 L 18 140/113 H 100 O2 Del Method O2 Flow Rate 12/14/22 13:30 12/14/22 13:30 12/14/22 13:15 12/14/22 13:00 12/14/22 12:45 12/14/22 12:30 12/14/22 12:30 12/14/22 12:15 12/14/22 12:01 12/14/22 12:01 12/14/22 12:00 12/14/22 11:51 12/14/22 11:50 12/14/22 13:22 Room Air 12/14/22 10:26 Nasal Cannula 2 12/14/22 10:20 Nasal Cannula 2 12/14/22 10:16 Nasal Cannula 2 12/14/22 10:17 12/14/22 10:13 Nasal Cannula Laboratory Results Laboratory Results - last 24 hr 12/14/22 12/14/22 12/14/22 10:15 10:16 10:16 WBC 8.84 RBC 4.57 Hgb 13.9 POC Hgb Hct 41.8 POC Hct MCV 91.5 MCH 30.4 MCHC 33.3 RDW Std Deviation 45.5 RDW Coeff of Neeta 13.3 Plt Count 318 MPV 9.2 L Immature Gran % (Auto) 0.2 Neut % (Auto) 47.8 Lymph % (Auto) 42.1 [place] % (Auto) 7.8 Eos % (Auto) 1.0 Baso % (Auto) 1.1 Neut # (Auto) 4.22 Lymph # (Auto) 3.72 H [place] # (Auto) 0.69 H Eos # (Auto) 0.09 Baso # (Auto) 0.10 Immature Gran # (Auto) 0.02 PT 10.9 INR 1.0 APTT 23.4 PTT Ratio 0.8 Activ Coag Time Kaolin POC Sodium Sodium POC Potassium Potassium POC Chloride Chloride Carbon Dioxide POC Total CO2 Anion Gap POC Anion Gap POC BUN BUN Creatinine POC Creatinine Est Cr Clr Drug Dosing Est GFR ( Amer) Est GFR (Non-Af Amer) BUN/Creatinine Ratio Glucose POC Glucose (other) Estimat Average Glucose Pending Hemoglobin A1c Pending Calcium POC Ioniz Calcium Aggie Magnesium Total Bilirubin Direct Bilirubin AST ALT Alkaline Phosphatase Troponin I High Sens Total Protein Albumin LDL Cholesterol Direct Nasal Screen MRSA (PCR) 12/14/22 12/14/22 12/14/22 10:16 10:19 11:04 WBC RBC Hgb POC Hgb 15.0 Hct POC Hct 44 MCV MCH MCHC RDW Std Deviation RDW Coeff of Neeta Plt Count MPV Immature Gran % (Auto) Neut % (Auto) Lymph % (Auto) [place] % (Auto) Eos % (Auto) Baso % (Auto) Neut # (Auto) Lymph # (Auto) [place] # (Auto) Eos # (Auto) Baso # (Auto) Immature Gran # (Auto) PT INR APTT PTT Ratio Activ Coag Time Kaolin 269 H POC Sodium 137 Sodium 136 POC Potassium 4.3 Potassium 4.3 POC Chloride 105 Chloride 105 Carbon Dioxide 24 POC Total CO2 21 L Anion Gap 7 POC Anion Gap 17.0 POC BUN 23 H BUN 25 H Creatinine 0.99 POC Creatinine 0.9 Est Cr Clr Drug Dosing 66.4 Est GFR ( Amer) 70.8 Est GFR (Non-Af Amer) 61.1 BUN/Creatinine Ratio 25.3 H Glucose 150 H POC Glucose (other) 147 H Estimat Average Glucose Hemoglobin A1c Calcium 8.4 L POC Ioniz Calcium Aggie 1.05 L Magnesium 1.9 Total Bilirubin 0.4 Direct Bilirubin 0.0 AST 12 L ALT 14 Alkaline Phosphatase 71 Troponin I High Sens 7.5 Total Protein 5.6 L Albumin 3.6 LDL Cholesterol Direct 178 Nasal Screen MRSA (PCR) 12/14/22 12/14/22 12/14/22 11:29 12:18 Unknown WBC 12.51 H RBC 4.60 Hgb 14.1 POC Hgb Hct 44.0 POC Hct MCV 95.7 MCH 30.7 MCHC 32.0 RDW Std Deviation 47.7 H RDW Coeff of Neeta 13.4 Plt Count 303 MPV 9.3 L Immature Gran % (Auto) 0.4 Neut % (Auto) 81.0 Lymph % (Auto) 13.5 [place] % (Auto) 4.2 Eos % (Auto) 0.3 Baso % (Auto) 0.6 Neut # (Auto) 10.13 H Lymph # (Auto) 1.69 Kent # (Auto) 0.52 Eos # (Auto) 0.04 Baso # (Auto) 0.08 Immature Gran # (Auto) 0.05 PT INR APTT PTT Ratio Activ Coag Time Kaolin 323 H POC Sodium Sodium POC Potassium Potassium POC Chloride Chloride Carbon Dioxide POC Total CO2 Anion Gap POC Anion Gap POC BUN BUN Creatinine POC Creatinine Est Cr Clr Drug Dosing Est GFR ( Amer) Est GFR (Non-Af Amer) BUN/Creatinine Ratio Glucose POC Glucose (other) Estimat Average Glucose Hemoglobin A1c Calcium POC Ioniz Calcium Aggie Magnesium Total Bilirubin Direct Bilirubin AST ALT Alkaline Phosphatase Troponin I High Sens Total Protein Albumin LDL Cholesterol Direct Nasal Screen MRSA (PCR) Pending
[2022-12-14 14:18] LABS: Estimated Average Glucose 120 mg/dl; Hemoglobin A1C 5.8 % (4.5-5.6)
[2022-12-14 14:35] LABS: Appearance Urine Clear (Clear); Bilirubin Urine Negative (Negative); Blood Urine Negative (Negative); Color Urine Yellow; Glucose Urine UA Negative (Negative); Ketones Urine 1+ (Negative); Leukocyte Esterase Urine Negative (Negative); Nitrite Urine Negative (Negative); Protein Urine Negative (Negative); Specific Gravity Urine > 1.045 (1.000-1.030); Urobilinogen Urine Negative (Negative)
[2022-12-14] MEDS: ATORVASTATIN 40 MG TAB PO SCH (15:28)
[2022-12-14] MEDS: SODIUM CHLORIDE 0.9% 1000ML 1,000 ML IV SCH (16:15)
--- NOTE | 2022-12-14 16:29 | History & Physical Report ---
Date of Service December 14, 2022 Assessment & Plan (1) Acute ST elevation myocardial infarction (STEMI) of inferior wall: Plan: Admitted to ICU Patient presenting from home after developing chest discomfort that radiated into her left arm around 9 AM. EMS was called and EKG showed inferior STEMI and heart block. Patient was taken urgently to the cardiac Apartment House Manager upon arrival to the ED where she received 1 INDY to the proximal RCA. Now chest pain free, EKG changes resolved. ASA, Brilinta, beta-denae, statin ordered Echo to be completed (2) Paroxysmal atrial flutter: Plan: History of short runs of atrial flutter found on outpatient ZIO monitor in 2019 No known recurrences Anticoagulation not initiated due to CHADS2 score 0 (3) Anxiety: (4) Depression: Plan: Continue bupropion (5) Tobacco dependence due to cigarettes: Plan: Smoking cessation encouraged Nicotine patch DVT PROPHYLAXIS SCDs Patient seen in collaboration with Dr. Powell. I spent a total of 75 minutes coordinating, documenting, and providing care for this patient excluding time spent in the performance of separately billed services. This included personally reviewing all current laboratories and imaging studies, medication reconciliation, outpatient chart review, and discussion with specialists. Admission and Anticipated Discharge Date Admission Date: December 14, 2022 History of Present Illness Chief Complaint: Chest pain Primary Care Provider: Sharif Ospina MD 62-year-old female with PMH COPD, tobacco abuse, paroxysmal atrial flutter, depression, anxiety, hepatitis C s/p treatment, and other problems listed below who presents to the ED for evaluation of chest pain. Around 9 AM, patient developed left-sided chest pain radiating into her left arm. Patient reports associated diaphoresis. EMS was called. EKG showed inferior STEMI with heart block. Upon arrival to the ED, patient was taken urgently to the Apartment House Manager where she received 1 INDY to proximal RCA. Patient seen in the ICU status post cardiac cath. She states that she has been feeling intermittently nauseous over the past couple of weeks, no other symptoms reported. Patient denies current chest pain. No shortness of breath. Denies lightheadedness and dizziness. Patient is now hemodynamically stable. Allergies Allergy/AdvReac Type Severity Reaction Status Date / Time Sulfa (Sulfonamide Allergy Mild BURN Unverified 04/18/20 23:17 Antibiotics) gabapentin Allergy Unknown RASH/HIVES Unverified 04/18/20 23:17 garlic Allergy Unknown GI ISSUES Unverified 04/18/20 23:17 Home Medications Medication Instructions Recorded Confirmed Type albuterol sulfate 90 mcg/actuation 2 puff inhalation BID PRN 12/15/18 12/14/22 History aerosol inhaler (ProAir HFA) wheezing/sob aspirin 81 mg tablet,delayed 81 mg PO DAILY 12/15/18 12/14/22 History release hydrocodone 10 mg-acetaminophen 1 tab PO Q6H PRN Pain 12/15/18 12/14/22 History 325 mg tablet (Jesse) lorazepam 0.5 mg tablet (Ativan) 0.5 mg PO Q6 PRN Anxiety 12/15/18 12/14/22 History tobramycin 0.3 % eye drops 1 drp ophthalmic (eye) DAILY PRN 12/15/18 12/14/22 History eye infection bupropion HCl 150 mg tablet,12 hr 300 mg PO DAILY 04/18/20 12/14/22 History sustained-release cyclobenzaprine 10 mg tablet 10 mg PO HS PRN Muscle Spasm 12/14/22 12/14/22 History diclofenac sodium 75 mg 75 mg PO BID 12/14/22 12/14/22 History tablet,delayed release Past Med/Surg History Medical History Anxiety Depression Paroxysmal atrial flutter Tobacco dependence due to cigarettes Surgical History H/O arthroscopic knee surgery History of arthroscopy of right shoulder History of partial hysterectomy No pertinent past surgical history Family History Other Factor V Leiden Social History Smoking Status: Current every day smoker Tobacco Type: Cigarettes Tobacco Cessation Education Requested by Patient: No Hx Substance Use: No Preferred Language: Maltese Communication Ability: Effective Manager Molecular Required: No Beliefs That Will Affect Care: None marital status: Single Current Living Situation: Alone current occupational status: employed Feels Safe at Home: Yes Safety Concerns: Feels Safe At This Time Review of Systems Review of Systems: ROS per HPI, all other systems reviewed and negative Physical Exam Constitutional: WD/WN, vitals as above Eyes: PERRL, conjunctivae normal, anicteric sclerae ENMT: external ear and nose normal, oropharynx normal Respiratory: normal respiratory effort, lungs clear to auscultation Cardiovascular: Rate/Rhythm: regular rate and regular rhythm Vessels: normal peripheral pulses Extremities: no edema Gastrointestinal (Abdomen): normal bowel sounds, soft, nontender, no hepatosplenomegaly Musculoskeletal: no cyanosis or clubbing, extremities motor strength 5/5 Skin: no rashes, warm and dry Neurologic: PERRL, EOMI, accommodation nl, no face palsy, no dysarthria Psychiatric: A+Ox3, euthymic affect Results & Data Results & Data Vital Signs (Past 12 Hours) Vital Signs Temp Pulse Pulse Resp BP BP Pulse Ox 12/14/22 13:30 71 21 97 12/14/22 13:30 101/71 12/14/22 13:15 73 21 93 12/14/22 13:00 78 19 12/14/22 12:45 80 16 96 12/14/22 12:30 81 15 95 12/14/22 12:30 91/57 L 12/14/22 12:15 81 17 97 12/14/22 12:01 86 21 93 12/14/22 12:01 92/56 L 12/14/22 12:00 87 21 12/14/22 11:51 89 13 12/14/22 11:50 93/53 L 12/14/22 13:22 36.6 C 87 22 93/53 L 98 12/14/22 10:26 54 L 18 117/70 100 12/14/22 10:20 54 L 17 108/70 99 12/14/22 10:16 50 L 20 140/113 H 100 12/14/22 10:17 51 L 12/14/22 10:13 36.5 C 50 L 18 140/113 H 100 O2 Del Method O2 Flow Rate 12/14/22 13:30 12/14/22 13:30 12/14/22 13:15 12/14/22 13:00 12/14/22 12:45 12/14/22 12:30 12/14/22 12:30 12/14/22 12:15 12/14/22 12:01 12/14/22 12:01 12/14/22 12:00 12/14/22 11:51 12/14/22 11:50 12/14/22 13:22 Room Air 12/14/22 10:26 Nasal Cannula 2 12/14/22 10:20 Nasal Cannula 2 12/14/22 10:16 Nasal Cannula 2 12/14/22 10:17 12/14/22 10:13 Nasal Cannula Laboratory Results Short CBC 12/14/22 12/14/22 Range/Units 10:16 12:18 WBC 8.84 12.51 H (4.8-10.8) K/ul Hgb 13.9 14.1 (12.0-16.0) g/dl Hct 41.8 44.0 (37.0-47.0) % Plt Count 318 303 (130-400) K/uL BMP 12/14/22 10:16 Sodium 136 Potassium 4.3 Chloride 105 Carbon Dioxide 24 BUN 25 H Creatinine 0.99 Glucose 150 H Calcium 8.4 L Liver Function 12/14/22 Range/Units 10:16 Total Bilirubin 0.4 (0.2-1.0) mg/dl Direct Bilirubin 0.0 (0-0.2) mg/dl AST 12 L (13-39) U/L ALT 14 (7-52) U/L Alkaline Phosphatase 71 (34-104) U/L Albumin 3.6 (3.4-5.0) gm/dl Urine 12/14/22 Range/Units Unknown Urine Color Yellow Urine Appearance Clear (Clear) Urine pH 5.0 (4.5-7.5) Ur Specific [place] > 1.045 H (1.000-1.030) Urine Protein Negative (Negative) Urine Glucose (UA) Negative (Negative) Diagnostic Findings Chest X-Ray 12/14/22 10:15 XR chest 1V portable CLINICAL HISTORY: Atypical chest pain. COMPARISON STUDY: Chest radiograph December 15, 2018. FINDINGS: Lung volumes are normal. Lungs are clear. There is no pneumothorax or pleural effusion. Cardiac size is normal. Mediastinal contours are normal. There is no evidence for pulmonary edema. IMPRESSION: No acute cardiopulmonary findings. ACT 112: Negative or not required by law. Electronically signed by: Gary Ureña M.D. 12/14/2022 10:30 AM Supervising Physician Co-Signing Physician Notes Patient is a 62-year-old female with history of COPD, tobacco use disorder, paroxysmal atrial flutter and other medical problems presents for evaluation of chest pain, left-sided radiating to her left arm. Patient had an urgent cardiac catheterization and PCI for RCA with drug-eluting stent. Postprocedure, patient feels tired and dizzy with ambulation. Chest pain resolved. Also denies any dyspnea, nausea, vomiting postprocedure. I personally reviewed blood work, imaging studies and EKG. On exam patient is moderately built and nourished, no apparent distress, normocephalic/atraumatic, EOMI,+ artificial right eye, decreased breath sounds, clear to auscultation, S1-S2, no murmur, no pedal edema, abdomen soft, nontender, normal bowel sounds, alert, awake, oriented, grossly no focal deficits. Patient is admitted for management of STEMI. S/P INDY to RCA. Continue dual antiplatelet therapy with aspirin, Brilinta. Continue s tatin, metoprolol. Echo pending. Appreciate cardiology input. Counseled to quit smoking. I personally reviewed the record. Patient is interviewed and examined at bedside. Patient's care is coordinated with Frida Seth PAPER BOX CUTTER. Please refer to the documentation above for details of patient's presentation and for discussion of other issues.
[2022-12-14 17:20] LABS: Influenza A virus by PCR Negative (Neg); Influenza B virus by PCR Negative (Neg); RSV by PCR Negative (Neg); SARS CoV2 RNA(COVID-19) Ceph NEGATIVE (Negative)
[2022-12-14] MEDS ORDERED: MELATONIN 3 MG TAB PO PRN (19:26)
[2022-12-14] MEDS ORDERED: ACETAMINOPHEN 325 MG TAB PO PRN (19:26)
[2022-12-14] MEDS ORDERED: ALBUT/IPRATROP 3MG/0.5MG NEB 3 ML VIAL NEB PRN (19:33)
--- NOTE | 2022-12-14 19:52 | Critical Care Consultation ---
Date of Consultation December 14, 2022 Assessment & Plan (1) Acute ST elevation myocardial infarction (STEMI) of inferior wall: Impression: 62-year-old female presents to the ICU status post PCI with INDY x1 to the proximal RCA for inferior STEMI. Neuro - [facility] ICU: Negative Anxiety and depressioncontinue Wellbutrin Cardiac - Inferior STEMIstatus post INDY x1 to proximal RCA. Admitted to ICU for monitoring post cath -Patient did have transient high degree AV block secondary to the SD on prior EKGs which is now resolved post cath. Continue to monitor on telemetry -Trend troponin -Follow-up echo -Continue ASA, Plavix, statin, MTP, lisinopril -Daily EKGs -Cardiology following, will follow recommendations Proximal A-fibcurrently in normal sinus rhythm on monitor. Patient is not anticoagulated due to CHADS2 score of 0. Continue to monitor on telemetry Respiratory - COPDno issue at this time. Continue Brilinta, DuoNeb as needed. Continuous monitoring pulse ox GI - Heart healthy diet RENAL/LYTES - Creatinine within normal limit. Monitor routine BMP and maximize electrolytes - Strict I's and O's ENDO - No history of diabetes or thyroid disease. ICU hyperglycemic protocol. A1c pending HEME - H&H stable, monitor routine CBC ID - Notification for infectious process at this time LINES/IV ACCESS - Peripheral IVs DVT PROPHYLAXIS - SCDs Thank you for allowing us to participate in the care of this patient. Please refer to my attending physician's documentation for any further recommendations. (2) COPD (chronic obstructive pulmonary disease): (3) Paroxysmal atrial flutter: (4) Depression: (5) Anxiety: History of Present Illness Attending Physician: Kenny Powell MD History of Present Illness Patient is a 62-year-old female with past medical history of tobacco abuse, COPD, PAF, anxiety and depression who presented to the emergency department around 9 AM this morning after developing left-sided chest pain that was radiating to her left arm with associated diaphoresis. On arrival to the emergency department EKG showed inferior STEMI with AV block. Heart alert was initiated and she was taken to the Ct Scan Special Procedures Technologist where she received successful PCI with INDY x1 to the proximal RCA. Patient now transferred to the ICU for further management at this time. On arrival to the ICU the patient is alert and oriented and hemodynamically stable. She denies any further chest pain post cath. Patient did state that she was sick a week ago with nausea, but no other recent illness. She reports chronic shortness of breath with activity due to her emphysema. She denies any fevers, headaches or dizziness, congestion or sore throat, cough, palpitations, abdominal pain, nausea or vomiting or diarrhea, swelling in hands or feet. Allergies Allergy/AdvReac Type Severity Reaction Status Date / Time Sulfa (Sulfonamide Allergy Mild BURN Unverified 04/18/20 23:17 Antibiotics) gabapentin Allergy Unknown RASH/HIVES Unverified 04/18/20 23:17 garlic Allergy Unknown GI ISSUES Unverified 04/18/20 23:17 Home Medications Medication Instructions Recorded Confirmed Type albuterol sulfate 90 mcg/actuation 2 puff inhalation BID PRN 12/15/18 12/14/22 History aerosol inhaler (ProAir HFA) wheezing/sob aspirin 81 mg tablet,delayed 81 mg PO DAILY 12/15/18 12/14/22 History release hydrocodone 10 mg-acetaminophen 1 tab PO Q6H PRN Pain 12/15/18 12/14/22 History 325 mg tablet (Weiner) lorazepam 0.5 mg tablet (Ativan) 0.5 mg PO Q6 PRN Anxiety 12/15/18 12/14/22 History tobramycin 0.3 % eye drops 1 drp ophthalmic (eye) DAILY PRN 12/15/18 12/14/22 History eye infection bupropion HCl 150 mg tablet,12 hr 300 mg PO DAILY 04/18/20 12/14/22 History sustained-release cyclobenzaprine 10 mg tablet 10 mg PO HS PRN Muscle Spasm 12/14/22 12/14/22 History diclofenac sodium 75 mg 75 mg PO BID 12/14/22 12/14/22 History tablet,delayed release Patient History Medical History Anxiety Depression Paroxysmal atrial flutter Tobacco dependence due to cigarettes Surgical History H/O arthroscopic knee surgery History of arthroscopy of right shoulder History of partial hysterectomy No pertinent past surgical history Family History Other Factor V Leiden Social History (Reviewed 12/14/22 @ 16:22 by [place] Smoking Status: Current every day smoker Tobacco Type: Cigarettes Tobacco Cessation Education Requested by Patient: No Hx Substance Use: No Preferred Language: [place] Communication Ability: Effective Processing Inspector Required: No Beliefs That Will Affect Care: None marital status: Single Current Living Situation: Alone current occupational status: employed Feels Safe at Home: Yes Safety Concerns: Feels Safe At This Time Review of Systems Review of Systems: All systems reviewed & are unremarkable except as noted in HPI & below Results & Data Results & Data Vital Signs (Past 12 Hours) Vital Signs Temp Pulse Pulse Resp BP BP Pulse Ox 12/14/22 17:30 65 20 97 12/14/22 17:30 97/62 L 12/14/22 17:02 68 18 98 12/14/22 16:31 65 23 98 12/14/22 16:31 98/64 L 12/14/22 16:30 69 18 92 12/14/22 16:01 72 20 97 12/14/22 16:01 101/59 L 12/14/22 16:00 70 14 99 12/14/22 15:32 65 19 98 12/14/22 15:32 107/65 12/14/22 15:15 77 100 12/14/22 15:00 71 98 12/14/22 15:00 101/74 12/14/22 14:30 72 21 96 12/14/22 14:30 91/64 L 12/14/22 14:15 74 17 98 12/14/22 13:45 73 15 97 12/14/22 16:00 73 12/14/22 13:30 71 21 97 12/14/22 13:30 101/71 12/14/22 13:15 73 21 93 12/14/22 13:00 78 19 12/14/22 12:45 80 16 96 12/14/22 12:30 81 15 95 12/14/22 12:30 91/57 L 12/14/22 12:15 81 17 97 12/14/22 12:01 86 21 93 12/14/22 12:01 92/56 L 12/14/22 12:00 87 21 12/14/22 11:51 89 13 12/14/22 11:50 93/53 L 12/14/22 13:22 36.6 C 87 22 93/53 L 98 12/14/22 10:26 54 L 18 117/70 100 12/14/22 10:20 54 L 17 108/70 99 12/14/22 10:16 50 L 20 140/113 H 100 12/14/22 10:17 51 L 12/14/22 10:13 36.5 C 50 L 18 140/113 H 100 O2 Del Method O2 Flow Rate 12/14/22 17:30 Room Air 12/14/22 17:30 12/14/22 17:02 Room Air 12/14/22 16:31 Room Air 12/14/22 16:31 12/14/22 16:30 Room Air 12/14/22 16:01 Room Air 12/14/22 16:01 12/14/22 16:00 Room Air 12/14/22 15:32 Room Air 12/14/22 15:32 12/14/22 15:15 Room Air 12/14/22 15:00 Room Air 12/14/22 15:00 12/14/22 14:30 Room Air 12/14/22 14:30 12/14/22 14:15 Room Air 12/14/22 13:45 Room Air 12/14/22 16:00 12/14/22 13:30 12/14/22 13:30 12/14/22 13:15 12/14/22 13:00 12/14/22 12:45 12/14/22 12:30 12/14/22 12:30 12/14/22 12:15 12/14/22 12:01 12/14/22 12:01 12/14/22 12:00 12/14/22 11:51 12/14/22 11:50 12/14/22 13:22 Room Air 12/14/22 10:26 Nasal Cannula 2 12/14/22 10:20 Nasal Cannula 2 12/14/22 10:16 Nasal Cannula 2 12/14/22 10:17 12/14/22 10:13 Nasal Cannula Coding Level of Care Code 21599 IN/OBS CONSULT LVL 3,45M Diagnoses Acute ST elevation myocardial infarction (STEMI) of inferior wall I21.19 COPD (chronic obstructive pulmonary disease) J44.9 Paroxysmal atrial flutter I48.92 Depression F32.A Anxiety F41.9 Time Spent (min) 45
[2022-12-14] MEDS: ACETAMINOPHEN 325 MG TAB PO PRN (20:11)
[2022-12-14] MEDS: METOPROLOL TARTRATE 25 MG TAB PO SCH (21:14)
[2022-12-15] MEDS: ACETAMINOPHEN 325 MG TAB PO PRN ×2 (02:17→10:49)
[2022-12-15] MEDS: SODIUM CHLORIDE 0.9% 1000ML 1,000 ML IV SCH ×2 (06:28→10:48)
--- NOTE | 2022-12-15 07:16 | Critical Care Progress Note ---
Date of Service December 15, 2022 Assessment & Plan (1) S/P right coronary artery (RCA) stent placement: (2) Orthostatic hypotension: (3) COPD (chronic obstructive pulmonary disease): (4) Paroxysmal atrial flutter: (5) Depression: (6) Tobacco dependence due to cigarettes: (7) Familial hyperlipidemia: (8) Acute ST elevation myocardial infarction (STEMI) of inferior wall: (9) Heart block: Plan Impression: 62-year-old female presents to the ICU status post PCI with INDY x1 to the proximal RCA for inferior STEMI. Neuro - [facility] ICU: Negative Anxiety and depressioncontinue Wellbutrin Cardiac - Inferior STEMIstatus post INDY x1 to proximal RCA on 12/14/2022. -Patient did have transient high degree AV block secondary to the CO on prior EKGs which is now resolved post cath. Continue to monitor on telemetry -Continue ASA, Plavix, statin, metoprolol -Daily EKGs -Cardiology following, will follow recommendations Proximal A-fibcurrently in normal sinus rhythm on monitor. Patient is not anticoagulated due to CHADS2 score of 0. Continue to monitor on telemetry Respiratory - COPD > [id number] smoking history Recommend PFT as an outpatient Can consider Incruse/Spiriva to be used on a daily basis on discharge GI - Heart healthy diet RENAL/LYTES - Monitor BUNs/creatinine - Strict I's and O's ENDO - ICU hypoglycemia protocol HEME - H&H stable, monitor routine CBC ID - Notification for infectious process at this time --Prophylaxis VTE: IPC GI: None Lines: Peripheral Diet: Cardiac Plan: In/out: +1 L, urine output 1 L Patient's blood pressure is on the softer side. She is asymptomatic She did not get her metoprolol today. I will decrease the metoprolol dose to 12.5 mg twice daily with holding parameters. Patient also has history of orthostatic hypotension from before. Give another 250 mL of bolus. Magnesium being replaced If the patient's blood pressure is stable then she can be considered to be downgraded to a telemetry floor later today Please note the above document was generated using voice recognition software. It may contain grammatical, syntax or spelling errors.Any formal questions or concerns about the content, text or information contained within the body of this dictation should be directly addressed to the provider for clarification. Admission and Anticipated Discharge Date Admission Date: December 14, 2022 Subjective Patient seen and examined at bedside. No acute distress, no adverse events overnight Patient got hypotensive when she sit up on the chair. Systolic in the low 60s. She got 250 of bolus. Map at the time of examination was 63 She denied any chest pain, no chest tightness, no dizziness, no palpitation Was able to tolerate breakfast Has been afebrile Review of Systems Review of Systems: All systems reviewed & are unremarkable except as noted in Subjective Physical Exam Physical Exam: Constitutional: No acute distress HEENT: EOMI, PERRLA, right eye prosthetic Respiratory system: Good air entry bilaterally, no wheeze, no rhonchi, no crackles CVS: S1-S2 positive, no murmurs or gallops Abdomen: Soft, nontender, nondistended, positive bowel sounds x4 Extremities: +2 pulses bilaterally radialis/ dorsalis pedis, no cyanosis, no edema Neuro: Awake alert oriented x3 Psych: Normal mood and affect G/U: No Chun Skin: no rashes, warm and dry Lymphatic: no cervical or axillary lymphadenopathy Results & Data Results & Data Vital Signs (Past 12 Hours) Vital Signs Temp Pulse Resp BP Pulse Ox O2 Del Method 12/15/22 06:58 63 12/15/22 06:14 66 16 95 12/15/22 05:00 64 19 92 12/15/22 05:00 100/72 12/15/22 04:00 71 19 94 12/15/22 04:00 117/72 12/15/22 03:00 75 24 95 12/15/22 03:00 84/50 L 12/15/22 02:00 60 21 94 12/15/22 02:00 87/47 L 12/15/22 01:00 57 L 20 96 12/15/22 01:00 94/60 L 12/15/22 04:00 36.8 C 12/15/22 00:00 59 L 19 93 12/15/22 00:00 86/52 L 12/14/22 23:00 70 20 92 12/14/22 23:00 98/58 L 12/14/22 22:00 66 21 93 12/14/22 22:00 94/60 L 12/14/22 21:00 63 22 93 12/14/22 21:00 94/61 L 12/14/22 20:31 71 30 H 95 12/14/22 20:31 88/59 L 12/15/22 00:00 36.8 C 12/15/22 00:00 62 12/14/22 20:00 71 15 97 12/14/22 20:00 106/69 12/14/22 19:30 63 23 94 12/14/22 19:30 94/62 L 12/14/22 20:24 Room Air 12/14/22 20:23 36.9 C Laboratory Results 12/14/22 12:18 12/14/22 10:16 Coding Level of Care Code 17513 SUB INP/OBS CARE 3/50MIN Diagnoses S/P right coronary artery (RCA) stent placement Z95.5 Orthostatic hypotension I95.1 COPD (chronic obstructive pulmonary disease) J44.9 Paroxysmal atrial flutter I48.92 Depression F32.A Tobacco dependence due to cigarettes F17.210 Familial hyperlipidemia E78.[address] elevation myocardial infarction (STEMI) of inferior wall I21.19 Heart block I45.9
[2022-12-15] MEDS: ATORVASTATIN 40 MG TAB PO SCH (08:18)
[2022-12-15] MEDS: ASPIRIN 81 MG ECTAB PO SCH (08:18)
[2022-12-15] MEDS: METOPROLOL TARTRATE 25 MG TAB PO SCH ×2 (08:18→19:52)
[2022-12-15] MEDS: TICAGRELOR 90 MG TAB PO SCH ×2 (08:19→19:52)
[2022-12-15] MEDS: NICOTINE 14 MG/24 HR PATCH TD SCH (08:20)
[2022-12-15] MEDS ORDERED: SODIUM CHLORIDE 0.9% 1000ML 250 ML IV ONE (08:23)
[2022-12-15 08:26] LABS: Calcium 8.2 mg/dl (8.6-10.3); Chol HDL Ratio 5.9 (0-5); Creatinine Clr Calc Pharmacy 86.7 ml/min; Est GFR (Non-African American) 89.8 ml/min; Magnesium 1.8 mg/dl (1.7-2.4); Phosphorus 3.2 mg/dl (2.5-4.9); Potassium 4.1 mmol/L (3.5-5.1)
[2022-12-15] MEDS: buPROPion XL 300 MG TABCR PO SCH (08:29)
[2022-12-15 08:38] LABS: Basophils # (auto) 0.06 K/uL (0-0.2); Basophils % (auto) 0.7 %; Eosinophils # (auto) 0.04 K/uL (0-0.50); Eosinophils % (auto) 0.5 %; Hematocrit (blood only) 36.6 % (37.0-47.0); Immature Granulocytes # (auto) 0.02 K/uL (0.01-0.20); Immature Granulocytes % (auto) 0.2 %; Lymphocytes # (auto) 2.35 K/uL (1.2-3.4); Lymphocytes % (auto) 27.4 %; Mean Corpuscular Hemoglobin 30.4 pg (25.0-34.0); Mean Corpuscular Hgb Conc 32.8 g/dL (32.0-36.0); Mean Corpuscular Volume 92.7 fL (80.0-100.0); Mean Platelet Volume 9.5 fL (9.4-12.4); Monocytes # (auto) 0.63 K/uL (0.11-0.59); Monocytes % (auto) 7.3 %; Neutrophils # (auto) 5.48 K/uL (1.40-6.50); Neutrophils % (auto) 63.9 %; Platelet Count 280 K/uL (130-400); RDW Coefficient of Variation 13.7 % (11.5-14.5); RDW Standard Deviation 46.7 fL (36.4-46.3); Red Blood Count 3.95 M/uL (4.20-5.40); White Blood Count 8.58 K/ul (4.8-10.8)
[2022-12-15] MEDS ORDERED: buPROPion SR 150 MG TABCR PO SCH (09:00)
[2022-12-15] MEDS: MAGNESIUM SULFATE / D5W 1 GM/100 ML BAG IV SCH ×2 (09:19→11:20)
--- NOTE | 2022-12-15 09:56 | Electrocardiogram Report ---
Test Reason : Blood Pressure : / mmHG Vent. Rate : 049 BPM Atrial Rate : 114 BPM P-R Int : 000 ms QRS Dur : 090 ms QT Int : 490 ms P-R-T Axes : 081 091 097 degrees QTc Int : 442 ms Sinus tachycardia with A-V dissociation and Junctional rhythm Rightward axis ST elevation consider inferolateral injury or acute infarct ACUTE MN / STEMI Consider right ventricular involvement in acute inferior infarct Abnormal ECG When compared with ECG of 15-DEC-2018 09:22, Junctional rhythm is now Present ST elevation now present in Inferior leads ST now depressed in Lateral leads T wave inversion now evident in Lateral leads Sinus rhythm is now with complete heart block Confirmed by Niranjan Wiggins ([id number]) on 12/15/2022 9:56:17 AM Referred By: REFERRED SELF Confirmed By:Niranjan Wgigins
--- NOTE | 2022-12-15 11:01 | Cardiology Progress Note ---
Date of Service December 15, 2022 Assessment & Plan (1) Acute ST elevation myocardial infarction (STEMI) of inferior wall: (2) S/P right coronary artery (RCA) stent placement: (3) Tobacco dependence due to cigarettes: (4) Heart block: (5) Familial hyperlipidemia: (6) Orthostatic hypotension: Plan 62-year-old female presents with inferior STEMI s/p PCI of RCA with drug-eluting stent. Recovering well. Beta-denae on hold due to transient hypotension this AM. She carries a longstanding history of orthostatic hypotension. Agree with IV hydration. We will add lower extremity compression stockings. Reviewed importance of continuing dual antiplatelet therapy for minimum of 1 year post myocardial infarction. Indication for high intensity statin therapy reviewed. She may require additional treatment (i.e. Zetia or PCSK9 inhibitor to achieve LDL goal). Continue observation for an additional 24 hours. Consider discharge in the next 24-48 hours. Admission and Anticipated Discharge Date Admission Date: December 14, 2022 Subjective 62-year-old female present to the hospital with acute inferior STEMI and intermittent high degree AV block. Taken to the cardiac catheterization lab emergently. Drug-eluting stent implanted without complication. Previously evaluated by the undersigned in 2019 due to atypical atrial flutter and orthostatic hypotension. Beta-denae prescribed during that visit, however, patient not taking medication at presentation. Called by nursing staff this morning due to asymptomatic hypotension with positional change. As noted above, patient carries a long history of orthostatic hypotension. Review of Systems Review of Systems: All systems reviewed & are unremarkable except as noted in Subjective Physical Exam Constitutional: well nourished; no acute distress Respiratory: normal respiratory effort; no respiratory distress, no labored breathing and no retractions Auscultation: no crackles, no rales, no rhonchi and no wheezes Cardiovascular: Rate/Rhythm: regular rate and regular rhythm Heart Sounds: normal S1 and normal S2; no murmur Vessels: no JVD and no carotid bruit Extremities: no edema Gastrointestinal (Abdomen): Inspection/Auscultation: abdomen normal to inspection and normal bowel sounds; abdomen not distended Percussion/Palpation: abdomen soft; abdomen nontender, no guarding and abdomen not rigid Neurologic: CN's II-XI intact bilaterally; no focal motor deficits Psychiatric: A+Ox3, euthymic affect Results & Data Vital Signs (Past 12 Hours) Vital Signs Temp Pulse Resp BP Pulse Ox O2 Del Method 12/15/22 09:30 64 16 98 Room Air 12/15/22 09:30 101/62 12/15/22 09:23 91/55 L 12/15/22 09:23 68 20 97 Room Air 12/15/22 09:00 75 20 97 Room Air 12/15/22 09:00 94/59 L 12/15/22 08:30 65 17 98 Room Air 12/15/22 08:25 73 19 95 Room Air 12/15/22 08:25 88/54 L 12/15/22 08:20 68/44 L 12/15/22 08:20 64 18 97 Room Air 12/15/22 08:15 71 17 95 Room Air 12/15/22 08:15 75/48 L 12/15/22 08:13 83/46 L 12/15/22 08:13 72 18 94 Room Air 12/15/22 07:32 64 15 98 Room Air 12/15/22 07:32 94/39 L 12/15/22 07:59 Room Air 12/15/22 06:58 63 12/15/22 06:14 66 16 95 12/15/22 05:00 64 19 92 12/15/22 05:00 100/72 12/15/22 04:00 71 19 94 12/15/22 04:00 117/72 12/15/22 03:00 75 24 95 12/15/22 03:00 84/50 L 12/15/22 02:00 60 21 94 12/15/22 02:00 87/47 L 12/15/22 01:00 57 L 20 96 12/15/22 01:00 94/60 L 12/15/22 04:00 36.8 C 12/15/22 00:00 59 L 19 93 12/15/22 00:00 86/52 L 12/14/22 23:00 70 20 92 12/14/22 23:00 98/58 L 12/15/22 00:00 36.8 C 12/15/22 00:00 62 Laboratory Results Lipids 12/15/22 Range/Units 07:39 Triglycerides 137 (0-150) mg/dl Cholesterol 201 H (0-200) mg/dl HDL Cholesterol 34 mg/dl Cholesterol/HDL Ratio 5.9 H (0-5) CBC 12/14/22 12/15/22 Range/Units 12:18 07:37 WBC 12.51 H 8.58 (4.8-10.8) K/ul RBC 4.60 3.95 L (4.20-5.40) M/uL Hgb 14.1 12.0 (12.0-16.0) g/dl Hct 44.0 36.6 L (37.0-47.0) % Plt Count 303 280 (130-400) K/uL Neut # (Auto) 10.13 H 5.48 (1.40-6.50) K/uL Lymph # (Auto) 1.69 2.35 (1.2-3.4) K/uL Mcintosh # (Auto) 0.52 0.63 H (0.11-0.59) K/uL Eos # (Auto) 0.04 0.04 (0-0.50) K/uL Baso # (Auto) 0.08 0.06 (0-0.2) K/uL Comprehensive Metabolic Panel 12/15/22 Range/Units 07:39 Sodium 138 (136-145) mmol/L Potassium 4.1 (3.5-5.1) mmol/L Chloride 110 H (98-107) mmol/L Carbon Dioxide 26 (21-32) mmol/L BUN 18 (6-23) mg/dl Creatinine 0.72 (0.6-1.2) mg/dl Glucose 88 (70-99(Fasting)) mg/dl Calcium 8.2 L (8.6-10.3) mg/dl Intake and Output 12/14/22 12/15/22 12/15/22 22:59 06:59 14:59 Intake Total 1100 / 2100 999 / 2099 433.333 / 433.333 Output Total 400 / 1001 551 / 1001 Balance 700 / 1099 449 / 1099 433.333 / 433.333 Intake: IV 999 433.333 / 433.333 Sodium Chloride 0.9% 1000ML 1, 999 433.333 / 433.333 000 ml @ 100 mls/hr IV .Q10H MORALES Rx#:[id number] Oral 100 / 100 Output: Urine 400 / 1000 550 / 1000 # Bowel Movements Other: # Unmeasured Voids 1 Weight 80.5 kg Weight Measurement Method Built in [facility]
[2022-12-15 12:19] LABS: Basophils # (auto) 0.06 K/uL (0-0.2); Basophils % (auto) 0.8 %; Eosinophils # (auto) 0.04 K/uL (0-0.50); Eosinophils % (auto) 0.5 %; Hematocrit (blood only) 35.6 % (37.0-47.0); Hemoglobin 11.6 g/dl (12.0-16.0); Immature Granulocytes # (auto) 0.02 K/uL (0.01-0.20); Immature Granulocytes % (auto) 0.3 %; Lymphocytes % (auto) 28.5 %; Mean Corpuscular Hemoglobin 30.3 pg (25.0-34.0); Mean Corpuscular Hgb Conc 32.6 g/dL (32.0-36.0); Mean Platelet Volume 9.2 fL (9.4-12.4); Monocytes # (auto) 0.49 K/uL (0.11-0.59); Monocytes % (auto) 6.4 %; Neutrophils % (auto) 63.5 %; Platelet Count 273 K/uL (130-400); RDW Coefficient of Variation 13.8 % (11.5-14.5); RDW Standard Deviation 46.9 fL (36.4-46.3); Red Blood Count 3.83 M/uL (4.20-5.40); White Blood Count 7.71 K/ul (4.8-10.8)
[2022-12-15 12:31] LABS: BUN Creatinine Ratio 26.2 (10-20); Calcium 7.7 mg/dl (8.6-10.3); Est GFR (African American) 110.3 ml/min; Est GFR (Non-African American) 95.2 ml/min; Potassium 3.6 mmol/L (3.5-5.1)
--- NOTE | 2022-12-15 16:39 | Hospitalist Progress Note ---
Date of Service December 15, 2022 Assessment & Plan (1) Acute ST elevation myocardial infarction (STEMI) of inferior wall: Plan: Inferior STEMI s/p PCI of RCA with drug-eluting stent --Cardiac Cath:Acute inferior ST elevation NE likely also involving the right ventricle secondary to 100% thrombotic occlusion proximally. Remainder of the coronaries are without significant disease. Successful PCI with implantation of a drug-eluting stent to the RCA. Adequate angiographic outcome. Residual thrombus and plaque will be managed by medication. --ECHO: EF 55 to 60%. Moderate sized septal, inferior and posterior wall motion abnormality with hypokinesis of the segments. Right ventricle is normal in size. Right ventricle systolic function is qualitatively normal. Mild mitral regurgitation. Trivial tricuspid regurgitation. Doppler findings do not suggest pulmonary hypertension. --Continue ASA, Brilinta, metoprolol, atorvastatin Appreciate cardiology input Needs follow-up with cardiology upon discharge Chronic orthostatic hypotension Monitor blood pressure Received IV fluids Continue metoprolol as tolerated (2) Paroxysmal atrial flutter: Plan: History of short runs of atrial flutter found on outpatient ZIO monitor in 2019 No known recurrences Anticoagulation not initiated due to low CHADS2 score (3) Anxiety: Plan: Continue home medication (4) Depression: Plan: Continue bupropion (5) Tobacco dependence due to cigarettes: Plan: Smoking cessation encouraged Nicotine patch DVT Px SCDs Admission and Anticipated Discharge Date Admission Date: December 14, 2022 Subjective Patient is seen and examined at bedside Denies any recurrence of chest pain Sitting in chair comfortably during my encounter Blood pressure usually runs low per patient Denies any dyspnea, dizziness, nausea, vomiting, abdominal pain today No other complaints Will downgrade to PCU today Review of Systems Review of Systems: All systems reviewed & are unremarkable except as noted in Subjective Physical Exam Physical Exam: Physical Exam: Vitals signs as noted above General Appearance:Moderately built and nourished, no apparent distress Head: normocephalic, Atraumatic Eyes: normal inspection, EOMI, R eye artificial/Blindness Neck: supple, Trachea midline Respiratory/Chest: Decreased breath sounds, CTA, No accessory muscle use Cardiovascular: S1, S2, No murmur Abdomen/GI:Soft, Non tender, Bowel sounds present Extremities/Musculoskeletal:normal inspection, no edema Neurologic/Psych:AAOX3, grossly no focal neurological deficits Skin: normal color, warm Results & Data Results & Data Vital Signs (Past 12 Hours) Vital Signs Temp Pulse Pulse Pulse Resp BP BP 12/15/22 16:21 69 18 12/15/22 15:25 12/15/22 15:24 75 12/15/22 15:14 36.6 C 69 20 105/70 12/15/22 14:00 68 24 12/15/22 14:00 103/64 12/15/22 13:30 68 18 12/15/22 13:30 92/64 L 12/15/22 13:00 70 24 12/15/22 13:00 103/61 12/15/22 12:30 72 23 12/15/22 12:30 102/62 12/15/22 12:00 69 20 12/15/22 12:00 92/57 L 12/15/22 11:31 72 12/15/22 11:31 92/53 L 12/15/22 11:30 77 14 12/15/22 14:21 68 12/15/22 11:00 67 23 12/15/22 11:00 95/57 L 12/15/22 10:30 66 12/15/22 10:30 101/55 L 12/15/22 10:00 66 18 12/15/22 10:00 96/55 L 12/15/22 09:30 64 16 12/15/22 09:30 101/62 12/15/22 09:23 91/55 L 12/15/22 09:23 68 20 12/15/22 09:00 75 20 12/15/22 09:00 94/59 L 12/15/22 08:30 65 17 12/15/22 08:25 73 19 12/15/22 08:25 88/54 L 12/15/22 08:20 68/44 L 12/15/22 08:20 64 18 12/15/22 08:15 71 17 12/15/22 08:15 75/48 L 12/15/22 08:13 83/46 L 12/15/22 08:13 72 18 12/15/22 07:32 64 15 12/15/22 07:32 94/39 L 12/15/22 07:59 12/15/22 06:58 63 12/15/22 06:14 66 16 12/15/22 05:00 64 19 12/15/22 05:00 100/72 Pulse Ox O2 Del Method 12/15/22 16:21 96 Room Air 12/15/22 15:25 Room Air 12/15/22 15:24 12/15/22 15:14 99 Room Air 12/15/22 14:00 97 Room Air 12/15/22 14:00 12/15/22 13:30 98 Room Air 12/15/22 13:30 12/15/22 13:00 96 Room Air 12/15/22 13:00 12/15/22 12:30 98 Room Air 12/15/22 12:30 12/15/22 12:00 98 Room Air 12/15/22 12:00 12/15/22 11:31 98 Room Air 12/15/22 11:31 12/15/22 11:30 95 Room Air 12/15/22 14:21 12/15/22 11:00 99 Room Air 12/15/22 11:00 12/15/22 10:30 98 Room Air 12/15/22 10:30 12/15/22 10:00 97 Room Air 12/15/22 10:00 12/15/22 09:30 98 Room Air 12/15/22 09:30 12/15/22 09:23 12/15/22 09:23 97 Room Air 12/15/22 09:00 97 Room Air 12/15/22 09:00 12/15/22 08:30 98 Room Air 12/15/22 08:25 95 Room Air 12/15/22 08:25 12/15/22 08:20 12/15/22 08:20 97 Room Air 12/15/22 08:15 95 Room Air 12/15/22 08:15 12/15/22 08:13 12/15/22 08:13 94 Room Air 12/15/22 07:32 98 Room Air 12/15/22 07:32 12/15/22 07:59 Room Air 12/15/22 06:58 12/15/22 06:14 95 12/15/22 05:00 92 12/15/22 05:00 Laboratory Results Short CBC 12/15/22 12/15/22 Range/Units 07:37 11:49 WBC 8.58 7.71 (4.8-10.8) K/ul Hgb 12.0 11.6 L (12.0-16.0) g/dl Hct 36.6 L 35.6 L (37.0-47.0) % Plt Count 280 273 (130-400) K/uL BMP 12/15/22 12/15/22 07:39 11:49 Sodium 138 139 Potassium 4.1 3.6 Chloride 110 H 110 H Carbon Dioxide 26 27 BUN 18 17 Creatinine 0.72 0.65 Glucose 88 89 Calcium 8.2 L 7.7 L
[2022-12-16] MEDS: buPROPion XL 300 MG TABCR PO SCH (08:55)
[2022-12-16] MEDS: METOPROLOL TARTRATE 25 MG TAB PO SCH (08:55)
[2022-12-16] MEDS: ASPIRIN 81 MG ECTAB PO SCH (08:55)
[2022-12-16] MEDS: ATORVASTATIN 40 MG TAB PO SCH (08:55)
[2022-12-16] MEDS: TICAGRELOR 90 MG TAB PO SCH (08:56)
[2022-12-16] MEDS: NICOTINE 14 MG/24 HR PATCH TD SCH (08:56)
--- NOTE | 2022-12-16 10:48 | Cardiology Progress Note ---
Date of Service December 16, 2022 Assessment & Plan (1) Acute ST elevation myocardial infarction (STEMI) of inferior wall: (2) S/P right coronary artery (RCA) stent placement: (3) Tobacco dependence due to cigarettes: (4) Heart block: (5) Familial hyperlipidemia: (6) Orthostatic hypotension: Plan 62-year-old female presents with inferior STEMI s/p PCI of RCA with drug-eluting stent. Blood pressure improved today without recurrent symptomatic orthostatic hypotension. Continue to wear below the knee TATIANNA stockings daily. Recommend transition metoprolol to tartrate to Toprol-XL 25 mg daily. Reviewed importance of continuing dual antiplatelet therapy for minimum of 12 months post drug-eluting stent implantation. Indication for high intensity statin therapy reviewed. She may require additional treatment (i.e. Zetia or PCSK9 inhibitor to achieve LDL goal). Repeat fasting lipid panel and ALT in 6 to 12 weeks. No further inpatient cardiac testing or intervention at this time. Outpatient cardiology follow-up in 4 to 6 weeks. Admission and Anticipated Discharge Date Admission Date: December 14, 2022 Subjective Patient seen examined the bedside. Anxious for discharge. Denies chest pain or shortness of breath. Sinus rhythm on telemetry. No orthopnea, PND, or lower extremity edema. Mild right groin ecchymosis unchanged. No hematoma. Review of Systems Review of Systems: All systems reviewed & are unremarkable except as noted in Subjective Physical Exam Constitutional: well nourished; no acute distress Respiratory: normal respiratory effort; no respiratory distress, no labored breathing and no retractions Auscultation: no crackles, no rales, no rhonchi and no wheezes Cardiovascular: Rate/Rhythm: regular rate and regular rhythm Heart Sounds: normal S1 and normal S2; no murmur Vessels: no JVD and no carotid bruit Extremities: no edema Right groin ecchymosis, no hematoma Gastrointestinal (Abdomen): Inspection/Auscultation: abdomen normal to inspection and normal bowel sounds; abdomen not distended Percussion/Palpation: abdomen soft; abdomen nontender, no guarding and abdomen not rigid Neurologic: CN's II-XI intact bilaterally; no focal motor deficits Psychiatric: A+Ox3, euthymic affect Results & Data Vital Signs (Past 12 Hours) Vital Signs Temp Pulse Pulse Resp BP Pulse Ox O2 Del Method 12/16/22 07:49 36.8 C 67 17 113/75 96 Room Air 05/09/23 07:28 65 12/16/22 03:09 36.7 C 71 18 96/57 L 94 Room Air 12/15/22 23:32 59 L 12/15/22 23:02 36.6 C 61 22 111/61 96 Room Air Laboratory Results CBC 12/15/22 Range/Units 11:49 WBC 7.71 (4.8-10.8) K/ul RBC 3.83 L (4.20-5.40) M/uL Hgb 11.6 L (12.0-16.0) g/dl Hct 35.6 L (37.0-47.0) % Plt Count 273 (130-400) K/uL Neut # (Auto) 4.90 (1.40-6.50) K/uL Lymph # (Auto) 2.20 (1.2-3.4) K/uL Antelope # (Auto) 0.49 (0.11-0.59) K/uL Eos # (Auto) 0.04 (0-0.50) K/uL Baso # (Auto) 0.06 (0-0.2) K/uL Comprehensive Metabolic Panel 12/15/22 Range/Units 11:49 Sodium 139 (136-145) mmol/L Potassium 3.6 (3.5-5.1) mmol/L Chloride 110 H (98-107) mmol/L Carbon Dioxide 27 (21-32) mmol/L BUN 17 (6-23) mg/dl Creatinine 0.65 (0.6-1.2) mg/dl Glucose 89 (70-99(Fasting)) mg/dl Calcium 7.7 L (8.6-10.3) mg/dl Intake and Output 12/15/22 12/16/22 12/16/22 22:59 06:59 14:59 Intake Total 758.333 / 1961.666 320 / 1961.666 Balance 758.333 / 1961.666 320 / 1.666 Intake: IV 758.333 / 1641.666 Sodium Chloride 0.9% 1000ML 1, 758.333 / 1191.666 000 ml @ 100 mls/hr IV .Q10H MORALES Rx#:[id number] Oral 320 / 320 Other: # Unmeasured Voids 4 Weight 81.3 kg Weight Measurement Method Standing Scale
--- NOTE | 2022-12-16 11:58 | Hospitalist Progress Note ---
Date of Service December 16, 2022 Assessment & Plan (1) Acute ST elevation myocardial infarction (STEMI) of inferior wall: Plan: Inferior STEMI s/p PCI of RCA with drug-eluting stent --Cardiac Cath:Acute inferior ST elevation [place] likely also involving the right ventricle secondary to 100% thrombotic occlusion proximally. Remainder of the coronaries are without significant disease. Successful PCI with implantation of a drug-eluting stent to the RCA. Adequate angiographic outcome. Residual thrombus and plaque will be managed by medication. --ECHO: EF 55 to 60%. Moderate sized septal, inferior and posterior wall motion abnormality with hypokinesis of the segments. Right ventricle is normal in size. Right ventricle systolic function is qualitatively normal. Mild mitral regurgitation. Trivial tricuspid regurgitation. Doppler findings do not suggest pulmonary hypertension. --Continue ASA, Brilinta, metoprolol, atorvastatin Appreciate cardiology input Needs repeat lipid panel, LFTs in 6 to 12 weeks Needs follow-up with cardiology upon discharge in 4 to 6 weeks Chronic orthostatic hypotension Monitor blood pressure Received IV fluids Continue metoprolol as tolerated BP better (2) Paroxysmal atrial flutter: Plan: History of short runs of atrial flutter found on outpatient ZIO monitor in 2019 No known recurrences Anticoagulation not initiated due to low CHADS2 score (3) Anxiety: Plan: Continue home medication (4) Depression: Plan: Continue bupropion (5) Tobacco dependence due to cigarettes: Plan: Smoking cessation encouraged Nicotine patch DVT Px SCDs Disposition Home Admission and Anticipated Discharge Date Admission Date: December 14, 2022 Subjective Patient is seen and examined at bedside States feeling tired but otherwise feels well Denies any chest pain, dyspnea, dizziness, nausea, abdominal pain Eager to get discharged Blood pressure better today No other complaints Review of Systems Review of Systems: All systems reviewed & are unremarkable except as noted in Subjective Physical Exam Physical Exam: Physical Exam: Vitals signs as noted above General Appearance:Moderately built and nourished, no apparent distress Head: normocephalic, Atraumatic Eyes: normal inspection, EOMI, R eye artificial/Blindness Neck: supple, Trachea midline Respiratory/Chest: Decreased breath sounds, CTA, No accessory muscle use Cardiovascular: S1, S2, No murmur Abdomen/GI:Soft, Non tender, Bowel sounds present Extremities/Musculoskeletal:normal inspection, no edema Neurologic/Psych:AAOX3, grossly no focal neurological deficits Skin: normal color, warm Results & Data Results & Data Vital Signs (Past 12 Hours) Vital Signs Temp Pulse Pulse Resp BP Pulse Ox O2 Del Method 12/16/22 11:24 36.9 C 63 18 99/64 L 98 Room Air 12/16/22 07:49 36.8 C 67 17 113/75 96 Room Air 12/16/22 07:28 65 12/16/22 03:09 36.7 C 71 18 96/57 L 94 Room Air Laboratory Results Short CBC 12/15/22 Range/Units 11:49 WBC 7.71 (4.8-10.8) K/ul Hgb 11.6 L (12.0-16.0) g/dl Hct 35.6 L (37.0-47.0) % Plt Count 273 (130-400) K/uL BMP 12/15/22 11:49 Sodium 139 Potassium 3.6 Chloride 110 H Carbon Dioxide 27 BUN 17 Creatinine 0.65 Glucose 89 Calcium 7.7 L
--- NOTE | 2022-12-16 12:08 | Discharge Summary ---
Date of Service December 16, 2022 Admission HPI Per Admitting Provider 62-year-old female with PMH COPD, tobacco abuse, paroxysmal atrial flutter, depression, anxiety, hepatitis C s/p treatment, and other problems listed below who presents to the ED for evaluation of chest pain. Around 9 AM, patient developed left-sided chest pain radiating into her left arm. Patient reports associated diaphoresis. EMS was called. EKG showed inferior STEMI with heart block. Upon arrival to the ED, patient was taken urgently to the [facility] where she received 1 INDY to proximal RCA. Patient seen in the ICU status post cardiac cath. She states that she has been feeling intermittently nauseous over the past couple of weeks, no other symptoms reported. Patient denies current chest pain. No shortness of breath. Denies lightheadedness and dizziness. Patient is now hemodynamically stable. Admission Exam Per Admitting Provider Physical Exam Constitutional: WD/WN, vitals as above Eyes: PERRL, conjunctivae normal, anicteric sclerae ENMT: external ear and nose normal, oropharynx normal Respiratory: normal respiratory effort, lungs clear to auscultation Cardiovascular: Rate/Rhythm: regular rate and regular rhythm Vessels: normal peripheral pulses Extremities: no edema Gastrointestinal (Abdomen): normal bowel sounds, soft, nontender, no hepatosplenomegaly Musculoskeletal: no cyanosis or clubbing, extremities motor strength 5/5 Skin: no rashes, warm and dry Neurologic: PERRL, EOMI, accommodation nl, no face palsy, no dysarthria Psychiatric: A+Ox3, euthymic affect Principal Diagnosis Acute ST elevation myocardial infarction Chronic orthostatic hypotension [place] Discharge Data Allergies Allergy/AdvReac Type Severity Reaction Status Date / Time Sulfa (Sulfonamide Allergy Mild BURN Unverified 04/18/20 23:17 Antibiotics) gabapentin Allergy Unknown RASH/HIVES Unverified 04/18/20 23:17 garlic Allergy Unknown GI ISSUES Unverified 04/18/20 23:17 Consultations 12/14/22 10:39 ED Decision to Admit Stat 12/14/22 11:34 Consult Internal Medicine Routine 12/14/22 12:40 Consult Cardiology Routine 12/14/22 12:41 Consult Pick Up Driver Routine Procedures Performed Operation Date: 12/14/22 10:45 Actual Procedures p Aspiration/PCI w/INDY for Stemi - Dillon Sharp MD, PhD s Ultrasound Vascular Access - Dillon Sharp MD, PhD s Placement Art Occlusive Device - Dillon Sharp MD, PhD s Cineradiography w/Routine Exam - Dillon Sharp MD, PhD p Cath, Coronaries ONLY (no LV) - Dillon Sharp MD, PhD Ordered Studies 12/14/22 10:28 CL Cath Imgs for PACS use only Stat Laboratory Results WBC 7.71 K/ul (4.8-10.8) 12/15/22 11:49 RBC 3.83 M/uL (4.20-5.40) L 12/15/22 11:49 Hgb 11.6 g/dl (12.0-16.0) L 12/15/22 11:49 POC Hgb 15.0 g/dl (12.0-16.0) 12/14/22 10:19 Hct 35.6 % (37.0-47.0) L 12/15/22 11:49 POC Hct 44 % (37-47) 12/14/22 10:19 MCV 93.0 fL (80.0-100.0) 12/15/22 11:49 MCH 30.3 pg (25.0-34.0) 12/15/22 11:49 MCHC 32.6 g/dL (32.0-36.0) 12/15/22 11:49 RDW Std Deviation 46.9 fL (36.4-46.3) H 12/15/22 11:49 RDW Coeff of Neeta 13.8 % (11.5-14.5) 12/15/22 11:49 Plt Count 273 K/uL (130-400) 12/15/22 11:49 MPV 9.2 fL (9.4-12.4) L 12/15/22 11:49 Immature Gran % (Auto) 0.3 % 12/15/22 11:49 Neut % (Auto) 63.5 % 12/15/22 11:49 Lymph % (Auto) 28.5 % 12/15/22 11:49 Bartholomew % (Auto) 6.4 % 12/15/22 11:49 Eos % (Auto) 0.5 % 12/15/22 11:49 Baso % (Auto) 0.8 % 12/15/22 11:49 Neut # (Auto) 4.90 K/uL (1.40-6.50) 12/15/22 11:49 Lymph # (Auto) 2.20 K/uL (1.2-3.4) 12/15/22 11:49 Bartholomew # (Auto) 0.49 K/uL (0.11-0.59) 12/15/22 11:49 Eos # (Auto) 0.04 K/uL (0-0.50) 12/15/22 11:49 Baso # (Auto) 0.06 K/uL (0-0.2) 12/15/22 11:49 Immature Gran # (Auto) 0.02 K/uL (0.01-0.20) 12/15/22 11:49 PT 10.9 Seconds (9.0-12.0) 12/14/22 10:16 INR 1.0 (0.9-1.1) 12/14/22 10:16 APTT 23.4 Seconds (21.0-31.0) 12/14/22 10:16 PTT Ratio 0.8 12/14/22 10:16 Activ Coag Time Kaolin 323 SECONDS (94-140) H 12/14/22 11:29 POC Sodium 137 mmol/L (135-144) 12/14/22 10:19 Sodium 139 mmol/L (136-145) 12/15/22 11:49 POC Potassium 4.3 mmol/L (3.3-5.0) 12/14/22 10:19 Potassium 3.6 mmol/L (3.5-5.1) 12/15/22 11:49 POC Chloride 105 mmol/L (101-112) 12/14/22 10:19 Chloride 110 mmol/L (98-107) H 12/15/22 11:49 Carbon Dioxide 27 mmol/L (21-32) 12/15/22 11:49 POC Total CO2 21 mmol/L (24-31) L 12/14/22 10:19 Anion Gap 2 (3-11) L 12/15/22 11:49 POC Anion Gap 17.0 mmol/L (16-25) 12/14/22 10:19 POC BUN 23 mg/dl (7-18) H 12/14/22 10:19 BUN 17 mg/dl (6-23) 12/15/22 11:49 Creatinine 0.65 mg/dl (0.6-1.2) 12/15/22 11:49 POC Creatinine 0.9 mg/dl (0.6-1.3) 12/14/22 10:19 Est Cr Clr Drug Dosing 96.0 ml/min 12/15/22 11:49 Est GFR ( Amer) 110.3 ml/min 12/15/22 11:49 Est GFR (Non-Af Amer) 95.2 ml/min 12/15/22 11:49 BUN/Creatinine Ratio 26.2 (10-20) H 12/15/22 11:49 Glucose 89 mg/dl (70-99(Fasting)) 12/15/22 11:49 POC Glucose (other) 147 mg/dl (70-99) H 12/14/22 10:19 Estimat Average Glucose 120 mg/dl 12/14/22 10:15 Hemoglobin A1c 5.8 % (4.5-5.6) H 12/14/22 10:15 Calcium 7.7 mg/dl (8.6-10.3) L 12/15/22 11:49 POC Ioniz Calcium Aggie 1.05 mmol/l (1.12-1.32) L 12/14/22 10:19 Phosphorus 3.2 mg/dl (2.5-4.9) 12/15/22 07:39 Magnesium 1.8 mg/dl (1.7-2.4) 12/15/22 07:39 Total Bilirubin 0.4 mg/dl (0.2-1.0) 12/14/22 10:16 Direct Bilirubin 0.0 mg/dl (0-0.2) 12/14/22 10:16 AST 12 U/L (13-39) L 12/14/22 10:16 ALT 14 U/L (7-52) 12/14/22 10:16 Alkaline Phosphatase 71 U/L (34-104) 12/14/22 10:16 Troponin I High Sens 7.5 pg/ml (0-14) 12/14/22 10:16 Total Protein 5.6 gm/dl (6.0-8.3) L 12/14/22 10:16 Albumin 3.6 gm/dl (3.4-5.0) 12/14/22 10:16 Triglycerides 137 mg/dl (0-150) 12/15/22 07:39 Cholesterol 201 mg/dl (0-200) H 12/15/22 07:39 LDL Cholesterol Direct 178 mg/dl 12/14/22 10:16 LDL Cholesterol, Calc 140 mg/dl 12/15/22 07:39 VLDL Cholesterol, Calc 27 mg/dl (0-30) 12/15/22 07:39 HDL Cholesterol 34 mg/dl 12/15/22 07:39 Cholesterol/HDL Ratio 5.9 (0-5) H 12/15/22 07:39 Urine Color Yellow 12/14/22 Unknown Urine Appearance Clear (Clear) 12/14/22 Unknown Urine pH 5.0 (4.5-7.5) 12/14/22 Unknown Ur Specific Wheeler > 1.045 (1.000-1.030) H 12/14/22 Unknown Urine Protein Negative (Negative) 12/14/22 Unknown Urine Glucose (UA) Negative (Negative) 12/14/22 Unknown Urine Ketones 1+ (Negative) H 12/14/22 Unknown Urine Blood Negative (Negative) 12/14/22 Unknown Urine Nitrite Negative (Negative) 12/14/22 Unknown Urine Bilirubin Negative (Negative) 12/14/22 Unknown Urine Urobilinogen Negative (Negative) 12/14/22 Unknown Ur Leukocyte Esterase Negative (Negative) 12/14/22 Unknown Nasal Screen MRSA (PCR) Negative (Negative) 12/14/22 Unknown SARS-CoV-2 (PCR) NEGATIVE (Negative) 12/14/22 16:33 Influenza Type A (PCR) Negative (Neg) 12/14/22 16:33 Influenza Type B (PCR) Negative (Neg) 12/14/22 16:33 RSV (RT-PCR) Negative (Neg) 12/14/22 16:33 Impressions Chest X-Ray 12/14/22 10:15 XR chest 1V portable CLINICAL HISTORY: Atypical chest pain. COMPARISON STUDY: Chest radiograph December 15, 2018. FINDINGS: Lung volumes are normal. Lungs are clear. There is no pneumothorax or pleural effusion. Cardiac size is normal. Mediastinal contours are normal. There is no evidence for pulmonary edema. IMPRESSION: No acute cardiopulmonary findings. ACT 112: Negative or not required by law. Electronically signed by: Gary Ureña M.D. 12/14/2022 10:30 AM Hospital Course (1) Acute ST elevation myocardial infarction (STEMI) of inferior wall: Inferior STEMI s/p PCI of RCA with drug-eluting stent --Cardiac Cath:Acute inferior ST elevation [place] likely also involving the right ventricle secondary to 100% thrombotic occlusion proximally. Remainder of the coronaries are without significant disease. Successful PCI with implantation of a drug-eluting stent to the RCA. Adequate angiographic outcome. Residual thrombus and plaque will be managed by medication. --ECHO: EF 55 to 60%. Moderate sized septal, inferior and posterior wall motion abnormality with hypokinesis of the segments. Right ventricle is normal in size. Right ventricle systolic function is qualitatively normal. Mild mitral regurgitation. Trivial tricuspid regurgitation. Doppler findings do not suggest pulmonary hypertension. --Continue ASA, Brilinta, metoprolol, atorvastatin Appreciate cardiology input Needs repeat lipid panel, LFTs in 6 to 12 weeks Needs follow-up with cardiology upon discharge in 4 to 6 weeks Chronic orthostatic hypotension Monitor blood pressure Received IV fluids Continue metoprolol as tolerated BP better (2) Paroxysmal atrial flutter: History of short runs of atrial flutter found on outpatient ZIO monitor in 2019 No known recurrences Anticoagulation not initiated due to low CHADS2 score (3) Anxiety: Continue home medication (4) Depression: Continue bupropion (5) Tobacco dependence due to cigarettes: Smoking cessation encouraged Nicotine patch DVT Px SCDs Disposition Home Total Time Total Time Spent Total Time Spent (In Minutes): 56 minutes Discharge Plan Discharge Items Patient Disposition: Home - Self-Care Reason For Visit: STEMI Discharge Diagnosis: Acute ST elevation myocardial infarction Chronic orthostatic hypotension [place] Activity: Per Instructions section Exercise/Sports: Wait until after follow-up appointment Non-emergency contact: Primary Care Provider and Supervisor [employer]icking [employer] Call non-emergency contact if: you have any medication questions, your symptoms worsen, your pain is concerning for you and you have a fever Follow-up/Referrals: Sharif Ospina MD [Primary Care Provider] - (Date & Time 12/19/2022 10:20 AM Provider [facility] Department [facility] ) Diet: Heart Healthy Add Attending Provider Instructions: Follow-up with your primary care physician Dr. Massey on 12/19/2022 10:20 AM Follow-up with your electric stop installer Dr.Kopinski in 4-6 weeks as advised --- Quit using tobacco as advised --- Continue using teds to help with your blood pressure as advised by electric stop installer --- Get blood test (fasting lipid panel, liver function test) in 4 to 6 weeks as advised by your electric stop installer --- Avoid [id number] pain medicines except for acetaminophen as advised Seek immediate medical attention if your symptoms reoccur or worsen Please take all medications as instructed on discharge list below. Please call if you have any questions or problems. You can reach a [facility] hospitalist on duty at [facility] 24 hours a day by calling [phone] Home Care: * Take your medications exactly as directed. Don't skip doses. * Remember that recovery after a heart attack takes time. Plan to rest for at lease 4-8 weeks while you recover. Then return to normal activity when your doctor says it's okay. * Ask your doctor about joining a heart rehabilitation program. * Tell your doctor if you are feeling depressed. Feelings of sadness are common after a heart attack, but it is important that you speak to someone if you are feeling overwhelmed by these feelings. * If you are having chest pain, call 911 for an ambulance. Do NOT drive yourself to the hospital. * Ask your family members to learn CPR. * Learn to take your own blood pressure and pulse. Keep a record of your results. Ask your doctor when you should seek emergency medical attention. He or she will tell you which blood pressure reading is dangerous. Lifestyle Changes: * Maintain a healthy weight. Get help to lose any extra pounds. * Cut back on salt. * Limit canned, dried, packaged, and fast foods. * Don't add salt to your food. * Season foods with herbs instead of salt when you cook. * Break the smoking habit. Enroll in a stop-smoking program to improve your chances of success. * Limit fatty foods. * Ask your doctor about having your lipid levels checked regularly. * Build up your activity according to your doctor's recommendation. * Ask your doctor when it's okay to resume sexual activity. * Tell your doctor about any erectile dysfunction (ED) medication you are taking. Some ED medications are not safe if you take certain heart medications. * Try to manage stress. Follow Up: It is important for you to keep your follow up appointments with your medical provider. Pending Studies at Discharge: No Stand-Alone Forms: My [facility], Smoking Cessation Medications and DC Order Prescriptions: New Brilinta 90 mg Tablet 90 mg PO BID 30 Days Qty: 60 2RF atorvastatin 40 mg Tablet 40 mg PO QAM Qty: 30 1RF metoprolol succinate 25 mg Tablet Extended Release 24 Hr 25 mg PO QAM 30 Days Qty: 30 1RF Continued hydrocodone-acetaminophen [[place]] 10-325 mg Tablet 1 tab PO Q6H PRN (Reason: Pain) Rx Instructions: do not exceed 4 a day lorazepam [Ativan] 0.5 mg Tablet 0.5 mg PO Q6 PRN (Reason: Anxiety) tobramycin 0.3 % Drops 1 drp OPHTHALMIC (EYE) DAILY PRN (Reason: eye infection) albuterol sulfate [ProAir HFA] 90 mcg/actuation Hfa Aerosol Inhaler 2 puff INHALATION BID PRN (Reason: wheezing/sob) bupropion HCl 150 mg tablet sustained-release 12 hr 300 mg PO DAILY cyclobenzaprine [Flexeril] 10 mg Tablet 10 mg PO HS PRN (Reason: Muscle Spasm) aspirin 81 mg Tablet,Delayed Release (Dr/Ec) 81 mg PO DAILY Qty: 30 1RF Discontinued diclofenac sodium 75 mg tablet,delayed release (DR/EC) 75 mg PO BID Discharge Orders: Discharge Order (Routine); Ordered 12/16/22 Ordered By: Kenny Powell Admission Data Admit Date/Time: 12/14/22 12:40 Attending Provider: Kenny Powell Admit Provider: Kenny Powell Primary Care Provider: Sharif Ospina Other Providers: Dillon Sharp ; Hawa Stiles ; Corin Maurer I. ; Dagmar Hutton ; Fito Valdez ; Cha Chiang ; Frida Seth ; Kristina Luu ; Clifford Mendieta ; Ahsan Mei ; Sesar Jung ; Brenna Esquivel ; Kenny Powell ; Sydni Og ; Lynn Villafuerte ; Gabi Arroyo ; Payam Sawant ; Azalia Loyd ; Lisa Jameson ; Yossi Malone ; Flori Pacheco I. ; John Angeles ; Joi Gonzalez ; Pati Callahan ; Nidhi Yeung ; Ian Vora ; Pedro Restrepo ; Ankush Stokes ; Carson Limon ; Fatou Crawford ; Brett Palmer ; Bay Boswell ; Mickey Smith W
--- NOTE | 2022-12-16 21:52 | Electrocardiogram Report ---
Test Reason : Blood Pressure : / mmHG Vent. Rate : 069 BPM Atrial Rate : 069 BPM P-R Int : 194 ms QRS Dur : 076 ms QT Int : 418 ms P-R-T Axes : 085 044 082 degrees QTc Int : 447 ms Normal sinus rhythm Low voltage QRS Inferior infarct ST elevation, consider inferior injury pattern Abnormal ECG When compared with ECG of 14-DEC-2022 10:14, Sinus rhythm is no longer with complete heart block ST no longer depressed in Lateral leads T wave amplitude has decreased in Inferior leads T wave inversion no longer evident in Lateral leads ST less elevated in Inferior leads Confirmed by Niranjan Wiggins ([id number]) on 12/16/2022 9:52:28 PM Referred By: REFERRED SELF Confirmed By:Niranjan Wiggins
--- NOTE | 2022-12-16 22:54 | Electrocardiogram Report ---
Test Reason : Blood Pressure : / mmHG Vent. Rate : 062 BPM Atrial Rate : 062 BPM P-R Int : 186 ms QRS Dur : 074 ms QT Int : 424 ms P-R-T Axes : 084 061 015 degrees QTc Int : 430 ms Normal sinus rhythm Possible Inferior infarct Abnormal ECG When compared with ECG of 14-DEC-2022 14:21, T wave inversion now evident in Inferior leads Confirmed by Niranjan Wiggins ([id number]) on 12/16/2022 10:54:38 PM Referred By: REFERRED SELF Confirmed By:Niranjan Wiggins
[2022-12-17] MEDS ORDERED: METOPROLOL SUCC 25MG EXT REL TAB PO SCH (09:00)
== END 2022-12-16 13:17 | disposition home or self-care (01) | DRG 247 ==
LOC: ED 10:08 → 1E 12:40 → 2E 12-15 13:47
PROC: CLB.CCO (2022-12-14 10:45)

== ENCOUNTER 2025-05-23 06:54 | Observation (INO) ==
[2025-05-23] MEDS: ALBUT/IPRATROP 3MG/0.5MG NEB 3 ML VIAL INH STA (07:16)
--- NOTE | 2025-05-23 07:16 | Emergency Department Note ---
ED Provider Note History of Present Illness Chief Complaint: Shortness of Breath/Dyspnea Stated Complaint: SOB Time Seen by Provider: 05/23/25 07:04 Source: patient and family Mode of arrival: ambulatory Limitations: no limitations Patient is a 65-year-old female who presents to the emergency department with complaints of shortness of breath. Patient states that she woke this morning with significantly increased work of breathing and shortness of breath. Patient states that she has a history of emphysema and has had episodes like this in the past but denies any use of oxygen or CPAP at home. Patient notes that she is having some left-sided chest pain into her left side ribs. Patient has a history of IN and COPD. Home Medications Medication Instructions Recorded Confirmed Type albuterol sulfate 90 mcg/actuation 2 puff inhalation Q4H PRN 12/15/18 05/23/25 History aerosol inhaler (ProAir HFA) wheezing/sob hydrocodone 10 mg-acetaminophen 1 tab PO Q6H PRN Back Pain 12/15/18 05/23/25 History 325 mg tablet (Amoret) lorazepam 0.5 mg tablet (Ativan) 0.5 mg PO Q6 PRN Anxiety 12/15/18 05/23/25 History bupropion HCl 150 mg tablet,12 hr 150 mg PO TID 04/18/20 05/23/25 History sustained-release ticagrelor 90 mg tablet (Brilinta) 90 mg PO BID 30 days #60 tabs 12/15/22 05/23/25 Rx metoprolol succinate 25 mg 25 mg PO QAM 30 days #30 tabs 12/16/22 05/23/25 Rx tablet,extended release 24 hr aspirin 81 mg tablet,delayed 81 mg PO QAM 05/23/25 05/23/25 History release atorvastatin 40 mg tablet 80 mg PO HS 05/23/25 05/23/25 History fluticasone fur. 100 mcg-umeclid See Rx Instructions .Route .COMPLEX 05/23/25 05/23/25 History 62.5 mcg-vilant 25 mcg inhalat.powder (Trelegy Ellipta) omeprazole 20 mg capsule,delayed 20 mg PO QAM 05/23/25 05/23/25 History release Allergies Allergy/AdvReac Type Severity Reaction Status Date / Time Sulfa (Sulfonamide Allergy Mild BURN Unverified 04/18/20 23:17 Antibiotics) gabapentin Allergy Unknown RASH/HIVES Unverified 04/18/20 23:17 garlic Allergy Unknown GI ISSUES Unverified 04/18/20 23:17 Past Med/Surg History Problem List Rhinovirus infection Viral bronchitis Orthostatic hypotension S/P right coronary artery (RCA) stent placement COPD (chronic obstructive pulmonary disease) Depression Paroxysmal atrial flutter Tobacco dependence due to cigarettes Familial hyperlipidemia Heart block Acute ST elevation myocardial infarction (STEMI) of inferior wall (Acute) Anxiety (Chronic) Surgical History H/O arthroscopic knee surgery History of partial hysterectomy History of arthroscopy of right shoulder No pertinent past surgical history Family History Other Factor V Leiden Social History Smoking Status: Current every day smoker Tobacco Type: Cigarettes Hx Alcohol Use: Yes Hx Substance Use: No Preferred Language: Persian Communication Ability: Effective Patient Access Representative Required: No Beliefs That Will Affect Care: None marital status: Single Current Living Situation: Family Current Living Situation Comment: lives at home with Sandra gastelum current occupational status: employed Other Information That Helps Us Care for You: No Feels Safe at Home: Yes Safety Concerns: Feels Safe At This Time Assistive Devices: Glasses Physical Exam Vital Signs Vital Signs - 24 hr 05/23/25 06:59 05/23/25 07:15 05/23/25 07:23 Temperature 36.5 C Temperature Source Temporal Artery Scan Pulse Rate 89 89 Pulse Rate [Apical] Respiratory Rate 18 Respiratory Effort / Characteristics Non-Labored Spontaneous Pursed Lip Short of Breath Respiratory Depth Normal Shallow Respiratory Pattern Blood Pressure 114/70 Blood Pressure [Left Arm] Blood Pressure Mean 84 Blood Pressure Mean [Left Arm] Blood Pressure Position Sitting Pulse Oximetry 91 Oxygen Delivery Method Room Air Oxygen Flow Rate Fraction of Inspired Oxygen Sepsis Recent Fever Within 48 Hours No Sepsis New/Unexplained Change in Mental Status No Sepsis Action Taken by Nursing No Action Required 05/23/25 07:23 05/23/25 07:23 05/23/25 07:23 Temperature Temperature Source Pulse Rate 76 Pulse Rate [Apical] 79 Respiratory Rate 16 16 Respiratory Effort / Characteristics Non-Labored Spontaneous Respiratory Depth Normal Respiratory Pattern Blood Pressure Blood Pressure [Left Arm] 94/62 L Blood Pressure Mean Blood Pressure Mean [Left Arm] 72 Blood Pressure Position Pulse Oximetry 90 90 90 Oxygen Delivery Method Room Air Room Air Room Air Oxygen Flow Rate Fraction of Inspired Oxygen Sepsis Recent Fever Within 48 Hours Sepsis New/Unexplained Change in Mental Status Sepsis Action Taken by Nursing 05/23/25 07:30 05/23/25 09:00 05/23/25 09:05 Temperature Temperature Source Pulse Rate 81 Pulse Rate [Apical] 77 Respiratory Rate 18 20 16 Respiratory Effort / Characteristics Non-Labored Spontaneous Non-Labored Spontaneous Respiratory Depth Normal Normal Respiratory Pattern Regular Blood Pressure Blood Pressure [Left Arm] 129/66 Blood Pressure Mean Blood Pressure Mean [Left Arm] 87 Blood Pressure Position Pulse Oximetry 99 89 L 92 Oxygen Delivery Method Room Air Nasal Cannula Oxygen Flow Rate 2 Fraction of Inspired Oxygen 35 Sepsis Recent Fever Within 48 Hours Sepsis New/Unexplained Change in Mental Status Sepsis Action Taken by Nursing VITAL SIGNS - Vital signs and nursing notes were reviewed. GENERAL -65-year-old female appearing their stated age. Communicates well with provider and answers questions appropriately, though the patient is short of breath between words. HEAD - Normocephalic, Atraumatic. EYES - PERRL with EOMI bilaterally. Sclera anicteric. Conjunctiva pink and moist with no injection noted. MOUTH/OROPHARYNX - Without perioral cyanosis. Buccal mucosa pink and moist and without leukoplakia. Airway patent, no edema noted. NECK - Neck with FROM. Supple to palpation. No lymphadenopathy noted. LUNGS - Increased work of breathing noted. Tachypnea noted with wheezing and diminished breath sounds. No rales or rhonchi noted. CARDIAC - RRR with S1/S2. No murmur, rubs, or gallops appreciated. EXTREMITIES - No edema present. +5/5 strength noted in UE/LE bilaterally. PSYCH - A&Ox3 and cooperates fully with examiner. Pt is very pleasant and interacts well with examiner Course Administered Medications Aspirin (Aspirin 81 Mg Ectab) [facility] [place] 06/22/25 10:14 Last Admin: 05/23/25 11:05 Dose: 81 mg Documented By: FELIPE Bupropion HCl (Bupropion Sr 150 Mg Tabcr) 300 mg PO QAM [facility] Stop: 06/22/25 11:29 Last Admin: 05/23/25 11:56 Dose: 300 mg Documented By: FELIPE Guaifenesin (Guaifenesin 600 Mg Tabcr) 1,200 mg PO Q12 [facility] Stop: 06/22/25 10:04 Last Admin: 05/23/25 11:05 Dose: 1,200 mg Documented By: FELIPE Methylprednisolone 40 mg/ (Syringe) 0.64 mls @ 1.5 mls/min IV Q8H [facility] Stop: 06/22/25 14:59 Last Admin: 05/23/25 14:14 Dose: 1.5 mls/min Documented By: FELIPE Metoprolol Succinate (Metoprolol Succ 25mg Ext Rel Tab) 25 mg PO [facility] Stop: 06/22/25 11:34 Last Admin: 05/23/25 11:56 Dose: 25 mg Documented By: FELIPE Nicotine (Nicotine 21 Mg/24 Hr Tdsy) 1 patch TD [facility] Stop: 06/22/25 10:14 Last Admin: 05/23/25 11:05 Dose: 1 patch Documented By: FELIPE Pantoprazole Sodium (Pantoprazole 40 Mg Tab) [facility] [place]: 06/22/25 11:34 Last Admin: 05/23/25 11:57 Dose: 40 mg Documented By: FELIPE Ticagrelor (Ticagrelor 90 Mg Tab) 90 mg PO BID [facility] Stop: 06/22/25 11:34 Last Admin: 05/23/25 11:57 Dose: 90 mg Documented By: FELIPE Discontinued Medications Albuterol (Albut/Ipratrop 3mg/0.5mg Neb 3 Ml Vial) 3 ml INH NOW STA Stop: 05/23/25 07:09 Last Admin: 05/23/25 07:16 Dose: 3 ml Documented By: ML Albuterol (Albut/Ipratrop 3mg/0.5mg Neb 3 Ml Vial) 3 ml NEB Q6R [facility]; Protocol Stop: 06/22/25 12:59 Last Admin: 05/23/25 12:48 Dose: 3 ml Documented By: ARLET Methylprednisolone (Methylprednisolone 125 Mg/2 Ml Vial) 125 mg IV NOW STA Stop: 05/23/25 07:09 Last Admin: 05/23/25 07:16 Dose: 125 mg Documented By: JENNI Medical Decision Making Differential Diagnosis COPD exacerbation, CHF, myocardial infarction, cardiac arrhythmia, pneumonia, influenza, COVID, among others Medical Records Attestation: I reviewed the patient's medical records. Home Medications was personally reviewed by me Laboratory Data Attestation: I reviewed the patient's lab results. 05/23/25 07:16 05/23/25 07:16 Lab Results 05/23/25 05/23/25 Range/Units 07:16 07:17 WBC 12.07 H (4.8-10.8) K/ul RBC 4.92 (4.20-5.40) M/uL Hgb 14.8 (12.0-16.0) g/dl Hct 45.0 (37.0-47.0) % MCV 91.5 (80.0-100.0) fL MCH 30.1 (25.0-34.0) pg MCHC 32.9 (32.0-36.0) g/dL RDW Std Deviation 46.4 H (36.4-46.3) fL RDW Coeff of Neeta 13.7 (11.5-14.5) % Plt Count 282 (130-400) K/uL MPV 9.6 (9.4-12.4) fL Immature Gran % (Auto) 0.3 % Neut % (Auto) 86.9 % Lymph % (Auto) 7.5 % [place] % (Auto) 4.2 % Eos % (Auto) 0.4 % Baso % (Auto) 0.7 % Neut # (Auto) 10.47 H (1.40-6.50) K/uL Lymph # (Auto) 0.91 L (1.20-3.40) K/uL [place] # (Auto) 0.51 (0.11-0.59) K/uL Eos # (Auto) 0.05 (0.00-0.50) K/uL Baso # (Auto) 0.09 (0.00-0.20) K/uL Immature Gran # (Auto) 0.04 (0.01-0.20) K/uL VBG pH 7.38 (7.36-7.41) VBG pCO2 46 (38-50) mmHg VBG pO2 49 mmHg VBG HCO3 27 mmol/L VBG O2 Saturation 81.1 % VBG Base Excess 1.4 mEq/L Sodium 136 (136-145) mmol/L Potassium 4.2 (3.5-5.1) mmol/L Chloride 102 (98-107) mmol/L Carbon Dioxide 28 (21-32) mmol/L Anion Gap 6 (3-11) BUN 20 (6-23) mg/dl Creatinine 0.86 (0.6-1.2) mg/dl Est Cr Clr Drug Dosing Not Reportable eGFR 74.92 BUN/Creatinine Ratio 23.3 H (10-20) Glucose 127 H (70-99(Fasting)) mg/dl Calcium 9.2 (8.6-10.3) mg/dl Total Bilirubin 0.7 (0.2-1.0) mg/dl AST 19 (13-39) U/L ALT 21 (7-52) U/L Alkaline Phosphatase 119 H (34-104) U/L Troponin I High Sens 4.6 (0-14) pg/ml B-Natriuretic Peptide 116 H (0-100) pg/ml Total Protein 6.9 (6.0-8.3) gm/dl Albumin 4.3 (3.4-5.0) gm/dl Globulin 2.6 (2.5-4.0) gm/dl Albumin/Globulin Ratio 1.7 (0.9-2) Procalcitonin < 0.02 (0-0.5) ng/ml Adenovirus (PCR) Not Detected (NotDetected) B. pertussis DNA (PCR) Not Detected (NotDetected) B.parapertussis DNA PCR Not Detected (NotDetected) C. pneumoniae DNA (PCR) Not Detected (NotDetected) Coronavirus OC43 (PCR) Not Detected (NotDetected) Coronavirus HKU1 (PCR) Not Detected (NotDetected) Coronavirus 229E (PCR) Not Detected (NotDetected) SARS-CoV-2 (PCR) Not Detected (NotDetected) Coronavirus NL63 (PCR) Not Detected (NotDetected) Human Metapneumovir PCR Not Detected (NotDetected) Influenza Type A (PCR) Not Detected (NotDetected) Influenza Type B (PCR) Not Detected (NotDetected) M. pneumoniae (PCR) Not Detected (NotDetected) Parainfluenza 1 (PCR) Not Detected (NotDetected) Parainfluenza 2 (PCR) Not Detected (NotDetected) Parainfluenza 3 (PCR) Not Detected (NotDetected) Parainfluenza 4 (PCR) Not Detected (NotDetected) RSV (PCR) Not Detected (NotDetected) Entero/Rhino (PCR) DETECTED A (NotDetected) Imaging Data Radiologist's Impression: Chest X-Ray 05/23/25 07:08 EXAM: XR chest 1V portable CLINICAL HISTORY: Dyspnea TECHNIQUE: X-ray images of the chest were obtained in frontal projections. COMPARISON: prior 12/14/2022. FINDINGS: Pulmonary Parenchyma: There is no evidence of consolidation, collapse, or focal opacities. No pulmonary nodules are identified. There is no evidence of pleural effusion or pleural thickening. Heart and Mediastinum: The heart size and shape are normal. There is no mediastinal widening or masses. No hilar or mediastinal lymphadenopathy is present. Bony Thorax: The bony thorax appears intact, without fractures or deformities. Soft Tissues: The soft tissues overlying the chest wall are unremarkable. IMPRESSION: No acute cardiopulmonary abnormalities. Electronically signed by Preet Brennan 05-23-2025 08:16 AM [facility] Narrative Patient is a 65-year-old female who presents to the emergency department with complaints of shortness of breath. Patient states that she woke this morning with significantly increased work of breathing and shortness of breath. Patient states that she has a history of emphysema and has had episodes like this in the past but denies any use of oxygen or CPAP at home. Patient notes that she is having some left-sided chest pain into her left side ribs. Patient has a history of IN and COPD. Patient was evaluated by myself and findings were noted in the physical exam above. Patient was ordered IV placement, lab work, urinalysis, VBG, EKG, and a chest x- ray. Patient was also ordered BiPAP with a DuoNeb as well. Patient was ordered Solu-Medrol IV. Patient's EKG was completed and interpreted by myself to note the patient in a normal sinus rhythm with a rate of 86 bpm. No evidence of elevation or ectopy. Patient's lab work resulted with a mildly elevated white blood cell count of 12.07. Upon reevaluation the patient also appears to be breathing much easier on the BiPAP. Patient is now saturating 99% on BiPAP and her respirations are approximately 14/min. When patient initially presented to the emergency department she was quite tachypneic at 30 respirations per minute and only saturating around 90%. Patient reports feeling like breathing is easier. Patient's lab work also resulted with no significant electrolyte imbalance noted. Patient's VBG was all within normal limits. Patient's troponin level resulted normal at 4.6. Patient did have a mildly elevated BNP of 116. Patient's chest x-ray was completed and interpreted by radiology to note no acute cardiopulmonary abnormalities. After using the BiPAP for a short period of time the patient does appear to be breathing much easier and requested that it be removed. BiPAP was stopped and the patient was placed on oxygen via nasal cannula and she is breathing much easier and saturating 95% on 2 L. I discussed with the patient that because she is having an exacerbation of her COPD and working so hard to breathe that it can be taxing on her lungs and heart and I would recommend admission to the hospital for further evaluation and treatment. Patient verbalized understanding and was agreeable to this plan. I reached out and [facility] to Ciarra[facility] and gave her a full report of the patient's chief complaint, current status and the results of her imaging and lab work. They agreed to admit the patient under Dr. Marte's service. [facility] documentation for further evaluation and management of this patient. Impression Acute exacerbation of chronic obstructive airways disease, Hypoxia, Bronchitis Critical Care Time Critical Care Time: Yes Total Critical Care Time: 45 Discharge Plan Visit Data Chief Complaint: Shortness of Breath/Dyspnea Stated Complaint: SOB ED Provider: Fabio Slater ED Midlevel Provider: Angelita Butterfield Discharge Problem: Acute exacerbation of chronic obstructive airways disease, Hypoxia, Bronchitis Patient Disposition: Admitted As Inpatient Condition: Fair Discharge Instructions Interventions: ED Discharge Assessment Last Done: 05/23/25 10:00 ED DC CONDITION Conditon at Discharge Condition at Discharge: Fair
[2025-05-23 07:38] LABS: Hematocrit (blood only) 45.0 % (37.0-47.0); Hemoglobin 14.8 g/dl (12.0-16.0); Immature Granulocytes # (auto) 0.04 K/uL (0.01-0.20); Immature Granulocytes % (auto) 0.3 %; Mean Corpuscular Hemoglobin 30.1 pg (25.0-34.0); Mean Corpuscular Volume 91.5 fL (80.0-100.0); Platelet Count 282 K/uL (130-400); RDW Standard Deviation 46.4 fL (36.4-46.3); Red Blood Count 4.92 M/uL (4.20-5.40); White Blood Count 12.07 K/ul (4.8-10.8)
[2025-05-23 07:49] LABS: Base Excess VBG 1.4 mEq/L; HCO3 VBG 27 mmol/L; Oxygen Saturation VBG 81.1 %; PCO2 VBG 46 mmHg (38-50); PO2 VBG 49 mmHg; pH VBG 7.38 (7.36-7.41)
[2025-05-23 07:56] LABS: Alanine Aminotransferase 21 U/L (7-52); Albumin Globulin Ratio 1.7 (0.9-2); Albumin Level 4.3 gm/dl (3.4-5.0); Alkaline Phosphatase 119 U/L (34-104); Anion Gap 6 (3-11); Bilirubin,Total 0.7 mg/dl (0.2-1.0); Blood Urea Nitrogen 20 mg/dl (6-23); Calcium 9.2 mg/dl (8.6-10.3); Carbon Dioxide 28 mmol/L (21-32); Chloride 102 mmol/L (98-107); Globulin 2.6 gm/dl (2.5-4.0); Glucose 127 mg/dl (70-99(Fasting)); Potassium 4.2 mmol/L (3.5-5.1); Sodium 136 mmol/L (136-145); Total Protein 6.9 gm/dl (6.0-8.3)
--- NOTE | 2025-05-23 08:17 | XRay Report ---
EXAM: XR chest 1V portable CLINICAL HISTORY: Dyspnea TECHNIQUE: X-ray images of the chest were obtained in frontal projections. COMPARISON: prior 12/14/2022. FINDINGS: Pulmonary Parenchyma: There is no evidence of consolidation, collapse, or focal opacities. No pulmonary nodules are identified. There is no evidence of pleural effusion or pleural thickening. Heart and Mediastinum: The heart size and shape are normal. There is no mediastinal widening or masses. No hilar or mediastinal lymphadenopathy is present. Bony Thorax: The bony thorax appears intact, without fractures or deformities. Soft Tissues: The soft tissues overlying the chest wall are unremarkable. IMPRESSION: No acute cardiopulmonary abnormalities. Electronically signed by Preet Brennan 05-23-2025 08:16 AM
[2025-05-23 08:38] LABS: Chlamydia pneumoniae PCR Not Detected (NotDetected); Coronavirus 229E PCR Not Detected (NotDetected); Coronavirus CoV-2 (COVID19)PCR Not Detected (NotDetected); Coronavirus HKU1 PCR Not Detected (NotDetected); Coronavirus NL63 PCR Not Detected (NotDetected); Coronavirus OC43PCR Not Detected (NotDetected); Human Metapneumovirus PCR Not Detected (NotDetected); Parainfluenza Virus 1 PCR Not Detected (NotDetected); Parainfluenza Virus 2 PCR Not Detected (NotDetected); Parainfluenza Virus 3 PCR Not Detected (NotDetected); Parainfluenza Virus 4 PCR Not Detected (NotDetected); Respiratory Syncytial VirusPCR Not Detected (NotDetected); Rhinovirus/Enterovirus PCR DETECTED (NotDetected)
--- NOTE | 2025-05-23 09:24 | History & Physical Report ---
Date of Service May 23, 2025 Assessment & Plan (1) Viral bronchitis: (2) Rhinovirus infection: Plan Patient is 65-year-old female with past history significant for inferior STEMI s/p PCI of the RCA with INDY in December 2022, nonobstructive residual coronary artery disease, mitral regurgitation, marked HLD, tobacco use, anxiety, history of atypical atrial flutter, history of orthostatic hypotension, COPD, history of lung nodule, chronic right-sided low back pain with right-sided sciatica, history of hepatitis C s/p antiviral drug therapy and depression who presented to the ED with complaints of SOB and cough. Found to have acute bronchitis 2/2 rhinovirus infection. Acute bronchitis 2/2 rhinovirus infection History of COPD Was initially placed on BiPAP in ED 2/2 increased WOB, tachypnea VBG without evidence of respiratory acidosis S/p 125mg IV Solu-Medrol, DuoNeb x 1 in ED On 3L NC and saturating around 92% at the time of my evaluation in ED CXR personally reviewed: no evidence of consolidation or focal opacities Mild leukocytosis appreciated, procalcitonin negative No evidence of sepsis on admission Was having some L-sided chest pain with coughing -Trop x 1 negative, EKG personally reviewed and without any evidence of acute ST changes -Feel this is pleuritic in nature, doubt ACS but will check repeat trop and keep on tele for now Continue 40mg IV Solu-Medrol Q8H for now, Mucinex BID Droplet precautions Pulmonary toilets with ISP, FV; scheduled Duonebs Wean off supplemental O2 as tolerated 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 -Will hold for now while on scheduled Duonebs -Mentions she takes this every other day instead of daily 2/2 history of recurrent oral thrush Nonobstructive residual CAD, marked HLD History of inferior STEMI s/p PCI of the RCA with INDY in December 2022 [facility]s with [facility] Continue DAPT and atorvastatin History of atypical atrial flutter Continue BB Depression/anxiety Continue Wellbutrin On as needed 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 PLANT TECH for anxiety, patient mention she is not uses "for a while" - will hold for now GERD Continue PPI Tobacco use disorder Has been smoking for >30 years Attempting to wean down, now down to 5-7 cigarettes/day Requesting nicotine patch - ordered Cessation encouraged Chronic right-sided low back pain with right-sided sciatica On [place] 10/325 1 tab Q6H as needed PLANT TECH - can continue DVT Prophylaxis: SQ heparin Code Status: FULL CODE PCP: Sharif Ospina MD Disposition: Admit to med/telemetry Lives at home with her sister, will obtain PT/OT evals for routine DC planning Patient seen in collaboration with Dr. Marte. Please see addendum. I spent a total of 54 minutes coordinating, documenting, and providing care for this patient excluding time spent in the performance of separately billed services or time spent by another provider/QHP. This included personally reviewing all current laboratories and imaging studies, medical reconciliation, outpatient chart review and discussion with specialists. This chart was completed in part utilizing Speech Voice Recognition Software. Grammatical errors, random word insertions, pronoun errors, and incomplete sentences are an occasional consequence of this system due to software limitations, ambient noise, and hardware issues. Any formal questions or concerns about the content, text, or information contained within the body of this dictation should be directly addressed to the provider for clarification. History of Present Illness Chief Complaint: SOB, cough Primary Care Provider: Sharif Ospina MD Patient is 65-year-old female with past history significant for inferior STEMI s/p PCI of the RCA with INDY in December 2022, nonobstructive residual coronary artery disease, mitral regurgitation, marked HLD, tobacco use, anxiety, history of atypical atrial flutter, history of orthostatic hypotension, COPD, history of lung nodule, chronic right-sided low back pain with right-sided sciatica, his tory of hepatitis C s/p antiviral drug therapy and depression who presented to the ED with complaints of SOB and cough. History obtained from the patient, patient's sister at bedside, discussion with ED provider and associated chart review. Started to develop some sinus congestion and a sore throat yesterday morning. Progressed to increasing SOB, cough and tachypnea beginning this morning. Also w ith complaints of pleuritic chest discomfort, primarily on the left side. No supplemental O2 use PLANT TECH. No fever PLANT TECH. Did have some sweating this morning with ambulation but attributed that to her tachypnea and increased WOB. Nonproductive cough. In ED, patient requiring 3L NC to maintain O2 saturation around 92-94%. Previously around 88% SpO2 on RA. Was initially placed on BiPAP upon arrival due to increased WOB. S/p 125mg IV Solu-Medrol, Duoneb x 1 in ED. Allergies Allergy/AdvReac Type Severity Reaction Status Date / Time Sulfa (Sulfonamide Allergy Mild BURN Unverified 04/18/20 23:17 Antibiotics) gabapentin Allergy Unknown RASH/HIVES Unverified 04/18/20 23:17 garlic Allergy Unknown GI ISSUES Unverified 04/18/20 23:17 Home Medications Medication Instructions Recorded Confirmed Type albuterol sulfate 90 mcg/actuation 2 puff inhalation Q4H PRN 12/15/18 05/23/25 History aerosol inhaler (ProAir HFA) wheezing/sob hydrocodone 10 mg-acetaminophen 1 tab PO Q6H PRN Back Pain 12/15/18 05/23/25 History 325 mg tablet ([place]) lorazepam 0.5 mg tablet (Ativan) 0.5 mg PO Q6 PRN Anxiety 12/15/18 05/23/25 History bupropion HCl 150 mg tablet,12 hr 150 mg PO TID 04/18/20 05/23/25 History sustained-release ticagrelor 90 mg tablet (Brilinta) 90 mg PO BID 30 days #60 tabs 12/15/22 05/23/25 Rx metoprolol succinate 25 mg 25 mg PO QAM 30 days #30 tabs 12/16/22 05/23/25 Rx tablet,extended release 24 hr aspirin 81 mg tablet,delayed 81 mg PO QAM 05/23/25 05/23/25 History release atorvastatin 40 mg tablet 80 mg PO HS 05/23/25 05/23/25 History fluticasone fur. 100 mcg-umeclid See Rx Instructions .Route .COMPLEX 05/23/25 05/23/25 History 62.5 mcg-vilant 25 mcg inhalat.powder (Trelegy Ellipta) omeprazole 20 mg capsule,delayed 20 mg PO QAM 05/23/25 05/23/25 History release Past Med/Surg History Problem List Rhinovirus infection Viral bronchitis Orthostatic hypotension S/P right coronary artery (RCA) stent placement COPD (chronic obstructive pulmonary disease) Depression Paroxysmal atrial flutter Tobacco dependence due to cigarettes Familial hyperlipidemia Heart block Acute ST elevation myocardial infarction (STEMI) of inferior wall (Acute) Anxiety (Chronic) Surgical History H/O arthroscopic knee surgery History of partial hysterectomy History of arthroscopy of right shoulder No pertinent past surgical history Family History Other Factor V Leiden Social History Smoking Status: Current every day smoker Tobacco Type: Cigarettes Hx Alcohol Use: Yes Hx Substance Use: No Preferred Language: Italian Communication Ability: Effective Program Instructor Required: No Beliefs That Will Affect Care: None marital status: Single Current Living Situation: Family Current Living Situation Comment: lives at home with Sandra gastelum current occupational status: employed Other Information That Helps Us Care for You: No Feels Safe at Home: Yes Safety Concerns: Feels Safe At This Time Assistive Devices: Glasses Review of Systems Review of Systems: At least ten systems reviewed and negative, except as noted in the HPI. Physical Exam Physical Exam: General: Middle-aged F, sitting up in bed, A&Ox3, patient's sister at bedside HEENT: Normocephalic, atraumatic, somewhat dry mucous membranes Respiratory: On 3L NC and saturating around 92%, diffuse wheezing bilaterally, mild conversational dyspnea but otherwise NAD Cardiovascular: RRR, normal peripheral pulses, no BLE edema Abdomen/GI: Normal bowel sounds, soft, nontender to palpation in all quadrants Extremities/Musculoskeletal: No cyanosis or clubbing, extremities motor strength intact, moves all extremities Neurologic: No overt focal deficits, CN's II-XI not formally tested but appear grossly intact bilaterally Results & Data Results & Data Vital Signs (Past 12 Hours) Vital Signs Temp Pulse Pulse Resp BP BP Pulse Ox 05/23/25 07:30 81 18 99 05/23/25 07:23 76 16 90 05/23/25 07:23 79 16 94/62 L 90 05/23/25 07:23 90 05/23/25 07:15 89 05/23/25 06:59 36.5 C 89 18 114/70 91 O2 Del Method FiO2 05/23/25 07:30 35 05/23/25 07:23 Room Air 05/23/25 07:23 Room Air 05/23/25 07:23 Room Air 05/23/25 07:15 05/23/25 06:59 Room Air Laboratory Results Short CBC 05/23/25 Range/Units 07:16 WBC 12.07 H (4.8-10.8) K/ul Hgb 14.8 (12.0-16.0) g/dl Hct 45.0 (37.0-47.0) % Plt Count 282 (130-400) K/uL BMP 05/23/25 07:16 Sodium 136 Potassium 4.2 Chloride 102 Carbon Dioxide 28 BUN 20 Creatinine 0.86 Glucose 127 H Calcium 9.2 Liver Function 05/23/25 Range/Units 07:16 Total Bilirubin 0.7 (0.2-1.0) mg/dl AST 19 (13-39) U/L ALT 21 (7-52) U/L Alkaline Phosphatase 119 H (34-104) U/L Albumin 4.3 (3.4-5.0) gm/dl Diagnostic Findings Chest X-Ray 05/23/25 07:08 EXAM: XR chest 1V portable CLINICAL HISTORY: Dyspnea TECHNIQUE: X-ray images of the chest were obtained in frontal projections. COMPARISON: prior 12/14/2022. FINDINGS: Pulmonary Parenchyma: There is no evidence of consolidation, collapse, or focal opacities. No pulmonary nodules are identified. There is no evidence of pleural effusion or pleural thickening. Heart and Mediastinum: The heart size and shape are normal. There is no mediastinal widening or masses. No hilar or mediastinal lymphadenopathy is present. Bony Thorax: The bony thorax appears intact, without fractures or deformities. Soft Tissues: The soft tissues overlying the chest wall are unremarkable. IMPRESSION: No acute cardiopulmonary abnormalities. Electronically signed by Preet Brennan 05-23-2025 08:16 AM Medications Administered Discontinued Medications Albuterol (Albut/Ipratrop 3mg/0.5mg Neb 3 Ml Vial) 3 ml INH NOW STA Stop: 05/23/25 07:09 Last Admin: 05/23/25 07:16 Dose: 3 ml Documented By: JENNI Methylprednisolone (Methylprednisolone 125 Mg/2 Ml Vial) 125 mg IV NOW STA Stop: 05/23/25 07:09 Last Admin: 05/23/25 07:16 Dose: 125 mg Documented By: JENNI Supervising Physician Co-Signing Physician Notes Patient seen and examined at bedside. Sister present as well. Patient could not breathe at home, wheezing for past few days, progressive in nature. On exam, no pitting edema, expiratory wheezing worse on left side than right, cough noted. Elevated leukocytosis in setting of rhinovirus infection. BNP within age adjusted normal, negative troponin. Xr chest unremarkable. Patient presenting with COPD exaccerbation 2/2 rhinovirus infection. Continue methylprednsione, transition to prednisone tomorrow. Incentive spirometer ordered. Encourage tobacco cessation. Will need PFTs and pulmonology follow up outpatient. -patient wants 2-step tomorrow for discharge home, willing to go home with oxygen as needed I have seen and discussed the case with the collaborating advanced practitioner. I agree with the above H&P. I have reviewed and confirmed the patients medical history, the findings on physical examination, and the patients diagnosis and treatment plan with Nicholas SERRANO and agree with the information documented. I spent a total of 30 minutes coordinating, documenting, and providing care for this patient excluding time spent in the performance of separately billed services. All of the aforementioned completed outside of collaborating with the assigned advanced practitioner for a full treatment plan. I have reviewed the advanced practitioner's documentation, and I agree with, and take responsibility for the plan of care
[2025-05-23] MEDS ORDERED: POLYETHYLENE (MIRALAX) 17 GM PACK PO PRN (10:27)
[2025-05-23] MEDS ORDERED: ONDANSETRON INJ 2 MG/ML 2 ML VIAL IV PRN (10:27)
[2025-05-23] MEDS ORDERED: MAGNESIUM HYDROXIDE SUSP 30 ML UDC PO PRN (10:27)
[2025-05-23] MEDS: NICOTINE 21 MG/24 HR TDSY TD SCH (11:05)
[2025-05-23] MEDS: guaiFENesin 600 MG TABCR PO SCH (11:05)
[2025-05-23] MEDS: ASPIRIN 81 MG ECTAB PO SCH (11:05)
[2025-05-23] MEDS: METOPROLOL SUCC 25MG EXT REL TAB PO SCH (11:56)
[2025-05-23] MEDS: TICAGRELOR 90 MG TAB PO SCH (11:57)
[2025-05-23] MEDS: ALBUT/IPRATROP 3MG/0.5MG NEB 3 ML VIAL NEB SCH ×2 (12:48→15:57)
[2025-05-23] MEDS ORDERED: LORazepam 0.5 MG TAB PO PRN (13:42)
[2025-05-23] MEDS ORDERED: ALBUT/IPRATROP 3MG/0.5MG NEB 3 ML VIAL NEB SCH (14:00)
[2025-05-23 16:22] LABS: Appearance Urine Clear (Clear); Bacteria Urine Automated None Seen (None Seen); Cast Urine Automated 0-2 /lpf (0-2); Epithelial Cell Urine Auto 0-2 /hpf (0-2); Glucose Urine UA Negative (Negative); RBC Urine Automated 0-2 /hpf (0-2); WBC Urine Automated 0-5 /hpf (0-5)
[2025-05-23] MEDS ORDERED: COUGH DROP (SUGAR FREE) LOZ 24 LOZ/1 BOX BUCCAL PRN (17:14)
[2025-05-23] MEDS ORDERED: TICAGRELOR 90 MG TAB PO SCH (21:00)
[2025-05-23] MEDS: ATORVASTATIN 40 MG TAB PO SCH (21:44)
[2025-05-23] MEDS: HEPARIN SOD 5,000 UNIT/0.5 ML VIAL SQ SCH (21:54)
[2025-05-24] MEDS: CHLORASEPTIC (PHENOL) 1.4% SOLN 180 ML BTL MT PRN (03:28)
[2025-05-24] MEDS: ACETAMINOPHEN 325 MG TAB PO PRN (03:30)
[2025-05-24 07:56] VITALS: BP 102/70; PULSE 86; TEMP 97.5
[2025-05-24 08:25] LABS: Hematocrit (blood only) 42.6 % (37.0-47.0); Hemoglobin 14.0 g/dl (12.0-16.0); Mean Corpuscular Hemoglobin 29.8 pg (25.0-34.0); Mean Corpuscular Volume 90.6 fL (80.0-100.0); Platelet Count 269 K/uL (130-400); RDW Standard Deviation 46.5 fL (36.4-46.3); Red Blood Count 4.70 M/uL (4.20-5.40); White Blood Count 15.54 K/ul (4.8-10.8)
[2025-05-24 08:39] LABS: Anion Gap 8.0 (3-11); Blood Urea Nitrogen 27.0 mg/dl (6-23); Calcium 9.3 mg/dl (8.6-10.3); Carbon Dioxide 27.0 mmol/L (21-32); Chloride 102.0 mmol/L (98-107); Creatinine Clr Calc Pharmacy 81.9 ml/min; Glucose 136.0 mg/dl (70-99(Fasting)); Potassium 4.3 mmol/L (3.5-5.1); Sodium 137.0 mmol/L (136-145)
[2025-05-24] MEDS: REMOVE NICODERM PATCH SCH (08:59)
[2025-05-24] MEDS ORDERED: METOPROLOL SUCC 25MG EXT REL TAB PO SCH (09:00)
--- NOTE | 2025-05-24 09:28 | Hospitalist Progress Note ---
Date of Service May 24, 2025 Assessment & Plan (1) Viral bronchitis: (2) Rhinovirus infection: Plan Patient is 65-year-old female with past history significant for inferior STEMI s/p PCI of the RCA with INDY in December 2022, nonobstructive residual coronary artery disease, mitral regurgitation, marked HLD, tobacco use, anxiety, history of atypical atrial flutter, history of orthostatic hypotension, COPD, history of lung nodule, chronic right-sided low back pain with right-sided sciatica, history of hepatitis C s/p antiviral drug therapy and depression who presented to the ED with complaints of SOB and cough. Found to have acute bronchitis 2/2 rhinovirus infection. Acute bronchitis 2/2 rhinovirus infection History of COPD Was initially placed on BiPAP in ED 2/2 increased WOB, tachypnea VBG without evidence of respiratory acidosis S/p 125mg IV Solu-Medrol, DuoNeb x 1 in ED On 3L NC and saturating around 92% at the time of my evaluation in ED CXR personally reviewed: no evidence of consolidation or focal opacities Mild leukocytosis appreciated, procalcitonin negative No evidence of sepsis on admission Was having some L-sided chest pain with coughing -Trop x 1 negative, EKG personally reviewed and without any evidence of acute ST changes -Feel this is pleuritic in nature, doubt ACS but will check repeat trop and keep on tele for now Continue 40mg IV Solu-Medrol Q8H for now, Mucinex BID Droplet precautions Pulmonary toilets with ISP, FV; scheduled Duonebs Wean off supplemental O2 as tolerated 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 -Will hold for now while on scheduled Duonebs -Mentions she takes this every other day instead of daily 2/2 history of recurrent oral thrush 05/24 breathing is much better requires 2 L o2 at all times after two step exercise test patient requesting to go home today discharge plan: Prednisone taper 60mg daily x 2 days, then 40mg daily x 2 days, etc until 10mg daily x 2 days, then STOP Nebs q4h-6 at home (patient states she still has nebules at home) start Doxycycline course x 7 days will need 2 L of O2 at all times, wean off accordingly ff up with PCP in 1 week Nonobstructive residual CAD, marked HLD History of inferior STEMI s/p PCI of the RCA with INDY in December 2022 Follows with [facility] cardiology Continue DAPT and atorvastatin History of atypical atrial flutter Continue BB Depression/anxiety Continue Wellbutrin On as needed 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 anxiety, patient mention she is not uses "for a while" - will hold for now GERD Continue PPI Tobacco use disorder Has been smoking for >30 years Attempting to wean down, now down to 5-7 cigarettes/day Requesting nicotine patch - ordered Cessation encouraged Chronic right-sided low back pain with right-sided sciatica On [place] 1 tab Q6H as needed 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 - can continue DVT Prophylaxis: SQ heparin Code Status: FULL CODE PCP: Sharif Ospina MD Disposition: DC home, PCP ff up in 1 week Lives at home with her sister Admission and Anticipated Discharge Date Admission Date: May 23, 2025 Subjective seen resting in bed, comfortable on 2 L O2 states she feels better overall breathing is much better able to expectorate more yellow thick phlegm no chest pain no fever/chills states she would really like to go home today as she will be able to rest better at home no other symptoms Review of Systems Review of Systems: all noted and negative except for above Physical Exam Physical Exam: General- oriented x 3, not in distress, speaks in sentences with no effort or accessory muscle use Eyes- anicteric Neck- no JVD Lungs- good air entry bilaterally (+) faint- mild scattered wheeze BL no crackles Heart- normal rate, regular rhythm; no murmurs Abdomen- normal bowel sounds, nondistended, soft, nontender Extremities- no pretibial edema, no calf tenderness Neuro- alert, oriented x 3; no gross focal neurologic deficits Skin- warm & dry Results & Data Results & Data Vital Signs (Past 12 Hours) Vital Signs Temp Pulse Pulse Pulse Pulse Pulse Resp 05/24/25 07:55 36.4 C L 86 16 05/24/25 07:51 91 H 18 05/24/25 07:51 104 H 94 H 106 H 05/24/25 07:18 79 05/24/25 04:17 36.6 C 82 20 05/24/25 03:56 05/24/25 01:21 86 05/23/25 23:53 36.6 C 84 20 05/23/25 23:50 84 18 Resp Resp Resp BP Pulse Ox Pulse Ox Pulse Ox 05/24/25 07:55 102/70 97 10/15/25 07:51 94 05/24/25 07:51 20 18 18 90 91 05/24/25 07:18 05/24/25 04:17 116/73 90 05/24/25 03:56 05/24/25 01:21 05/23/25 23:53 109/55 L 92 05/23/25 23:50 99 Pulse Ox O2 Del Method O2 Flow Rate O2 Flow Rate O2 Flow Rate 05/24/25 07:55 Nasal Cannula 2 05/24/25 07:51 Nasal Cannula 2 05/24/25 07:51 86 L 2 2 05/24/25 07:18 05/24/25 04:17 Room Air 05/24/25 03:56 Nasal Cannula 2 05/24/25 01:21 05/23/25 23:53 Nasal Cannula 3 05/23/25 23:50 Nasal Cannula 3 all noted and reviewed including below
--- NOTE | 2025-05-24 09:53 | Discharge Summary ---
Discharge Summary Date of Service May 24, 2025 Principal Dx & Hospital Course #1 = Principal Diagnosis (1) Viral bronchitis: (2) Rhinovirus infection: Plan per admiti Patient is 65-year-old female with past history significant for inferior STEMI s/p PCI of the RCA with INDY in December 2022, nonobstructive residual coronary artery disease, mitral regurgitation, marked HLD, tobacco use, anxiety, history of atypical atrial flutter, history of orthostatic hypotension, COPD, history of lung nodule, chronic right-sided low back pain with right-sided sciatica, history of hepatitis C s/p antiviral drug therapy and depression who presented to the ED with complaints of SOB and cough. Found to have acute bronchitis 2/2 rhinovirus infection. Acute bronchitis 2/2 rhinovirus infection History of COPD Was initially placed on BiPAP in ED 2/2 increased WOB, tachypnea VBG without evidence of respiratory acidosis S/p 125mg IV Solu-Medrol, DuoNeb x 1 in ED On 3L NC and saturating around 92% at the time of my evaluation in ED CXR personally reviewed: no evidence of consolidation or focal opacities Mild leukocytosis appreciated, procalcitonin negative No evidence of sepsis on admission Was having some L-sided chest pain with coughing -Trop x 1 negative, EKG personally reviewed and without any evidence of acute ST changes -Feel this is pleuritic in nature, doubt ACS but will check repeat trop and keep on tele for now Continue 40mg IV Solu-Medrol Q8H for now, Mucinex BID Droplet precautions Pulmonary toilets with ISP, FV; scheduled Duonebs Wean off supplemental O2 as tolerated 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 -Will hold for now while on scheduled Duonebs -Mentions she takes this every other day instead of daily 2/2 history of recurrent oral thrush 05/24 breathing is much better requires 2 L o2 at all times after two step exercise test patient requesting to go home today discharge plan: Prednisone taper 60mg daily x 2 days, then 40mg daily x 2 days, etc until 10mg daily x 2 days, then STOP Nebs q4h-6 at home (patient states she still has nebules at home) Mucinex BIP will need 2 L of O2 at all times, wean off accordingly ff up with PCP in 1 week Nonobstructive residual CAD, marked HLD History of inferior STEMI s/p PCI of the RCA with INDY in December 2022 Follows with [facility] Continue DAPT and atorvastatin History of atypical atrial flutter Continue BB Depression/anxiety Continue Wellbutrin On as needed 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 anxiety, patient mention she is not uses "for a while" - will hold for now GERD Continue PPI Tobacco use disorder Has been smoking for >30 years Attempting to wean down, now down to 5-7 cigarettes/day Requesting nicotine patch - ordered Cessation encouraged Chronic right-sided low back pain with right-sided sciatica On Mcintosh 10/325 1 tab Q6H as needed 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 - can continue DVT Prophylaxis: SQ heparin Code Status: FULL CODE PCP: Sharif Ospina MD Disposition: DC home, PCP ff up in 1 week Lives at home with her sister Notes For Next Care Provider Medication Changes From Visit Prednisone taper Mucinex Nebulizer treatment Admission HPI Per Admitting Provider Patient is 65-year-old female with past history significant for inferior STEMI s/p PCI of the RCA with INDY in December 2022, nonobstructive residual coronary artery disease, mitral regurgitation, marked HLD, tobacco use, anxiety, history of atypical atrial flutter, history of orthostatic hypotension, COPD, history of lung nodule, chronic right-sided low back pain with right-sided sciatica, history of hepatitis C s/p antiviral drug therapy and depression who presented to the ED with complaints of SOB and cough. History obtained from the patient, patient's sister at bedside, discussion with ED provider and associated chart review. Started to develop some sinus congestion and a sore throat yesterday morning. Progressed to increasing SOB, cough and tachypnea beginning this morning. Also with complaints of pleuritic chest discomfort, primarily on the left side. 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 Did have some sweating this morning with ambulation but attributed that to her tachypnea and increased WOB. Nonproductive cough. In ED, patient requiring 3L NC to maintain O2 saturation around 92-94%. Previously around 88% SpO2 on RA. Was initially placed on BiPAP upon arrival due to increased WOB. S/p 125mg IV Solu-Medrol, Duoneb x 1 in ED. Admission Exam Per Admitting Provider General: Middle-aged F, sitting up in bed, A&Ox3, patient's sister at bedside HEENT: Normocephalic, atraumatic, somewhat dry mucous membranes Respiratory: On 3L NC and saturating around 92%, diffuse wheezing bilaterally, mild conversational dyspnea but otherwise NAD Cardiovascular: RRR, normal peripheral pulses, no BLE edema Abdomen/GI: Normal bowel sounds, soft, nontender to palpation in all quadrants Extremities/Musculoskeletal: No cyanosis or clubbing, extremities motor strength intact, moves all extremities Neurologic: No overt focal deficits, CN's II-XI not formally tested but appear grossly intact bilaterally Discharge Exam General- oriented x 3, not in distress, speaks in sentences with no effort or accessory muscle use Eyes- anicteric Neck- no JVD Lungs- good air entry bilaterally (+) faint- mild scattered wheeze BLno crackles Heart- normal rate, regular rhythm; no murmurs Abdomen- normal bowel sounds, nondistended, soft, nontender Extremities- no pretibial edema, no calf tenderness Neuro- alert, oriented x 3; no gross focal neurologic deficits Skin- warm & dry Updated Medication List Medication Instructions Recorded Confirmed Type albuterol sulfate 90 mcg/actuation 2 puff inhalation Q4H PRN 12/15/18 05/23/25 History aerosol inhaler (ProAir HFA) wheezing/sob hydrocodone 10 mg-acetaminophen 1 tab PO Q6H PRN Back Pain 12/15/18 05/23/25 History 325 mg tablet (Mcintosh) lorazepam 0.5 mg tablet (Ativan) 0.5 mg PO Q6 PRN Anxiety 12/15/18 05/23/25 History bupropion HCl 150 mg tablet,12 hr 150 mg PO TID 04/18/20 05/23/25 History sustained-release ticagrelor 90 mg tablet (Brilinta) 90 mg PO BID 30 days #60 tabs 12/15/22 05/23/25 Rx metoprolol succinate 25 mg 25 mg PO QAM 30 days #30 tabs 12/16/22 05/23/25 Rx tablet,extended release 24 hr aspirin 81 mg tablet,delayed 81 mg PO QAM 05/23/25 05/23/25 History release atorvastatin 40 mg tablet 80 mg PO HS 05/23/25 05/23/25 History fluticasone fur. 100 mcg-umeclid See Rx Instructions .Route .COMPLEX 05/23/25 1 History 62.5 mcg-vilant 25 mcg inhalat.powder (Trelegy Ellipta) omeprazole 20 mg capsule,delayed 20 mg PO QAM 05/23/25 05/23/25 History release guaifenesin 600 mg tablet, 1,200 mg (2 x 600 mg) PO Q12 6 05/24/25 Rx extended release 12 hr (Mucinex) days #24 tabs ipratropium 0.5 mg-albuterol 3 mg 3 ml NEB Q4R 7 days #90 mL 05/24/25 Rx (2.5 mg base)/3 mL nebulization soln prednisone 20 mg tablet 20 mg PO UD #16 tabs 05/24/25 Rx Hospital Stay Data Consultations 05/23/25 09:24 ED Decision to Admit Stat Pending Results Patient Have Any Pending Studies at Discharge: No Discharge Instructions Given to Patient (Per Discharging Provider) PLEASE REFER TO YOUR NEW MEDICATION LIST AND FOLLOW INSTRUCTIONS CAREFULLY. YOUR NEW MEDICATIONS INCLUDE: Prednisone taper as follows: 60mg daily x 2 days, then 40mg daily x 2 days, then 30mg daily x 2 days, then 20mg daily x 2 days, then 10mg daily x 2 days, then stop Mucinex- to help expectorate phlegm Nebulizer treatment- every 4-6 hours until seen by your Primary Care Physician decrease frequency if symptoms are improving PLEASE CALL YOUR PRIMARY CARE PHYSICIAN OR RETURN TO THE ER IF WITH WORSENING OF SYMPTOMS, INCLUDING fever/chills, cough, shortness of breath, etc FOLLOW UP WITH PRIMARY CARE PHYSICIAN OUTLINED ABOVE. Total Time Total Time Spent Total Time Spent (In Minutes): 45 minutes
[2025-05-24 11:26] VITALS: RESP 18
[2025-05-24 12:50] VITALS: O2SAT 89
--- NOTE | 2025-05-26 15:27 | Electrocardiogram Report ---
Test Reason : Blood Pressure : */* mmHG Vent. Rate : 86 BPM Atrial Rate : 86 BPM P-R Int : 178 ms QRS Dur : 80 ms QT Int : 344 ms P-R-T Axes : 90 83 65 degrees QTcB Int : 411 ms Normal sinus rhythm Normal ECG When compared with ECG of 15-Dec-2022 07:27, ST no longer elevated in Inferior leads T wave inversion no longer evident in Inferior leads Confirmed by Tavares Wilson ([id number]) on 05/26/2025 3:26:57 PM Referred By: REFERRED SELF Confirmed By: Tavares Wilson
== END 2025-05-24 12:00 | disposition home or self-care (01) | DRG 191 ==
LOC: ED 06:54 → SUATTDRO 09:31 → 2N 09:31 → INTOOBSV 09:31 → 2N 10:00